=== PATIENT | male | born 1975 | race Caucasian/White ===

== ENCOUNTER 2023-07-27 08:24 | Inpatient (IN) | payer OTHER, SELFPAY ==
[2023-07-27 09:45] LABS: Absolute Eosinophils 0.3 K/uL (0-0.5); Absolute Lymphocytes (CBC) 2.7 K/uL (0.7-4.9); Absolute Monocytes 1.1 K/uL (0.1-1.3); Absolute Neutrophil 8.7 K/uL (1.8-8.0); Basophils % 0.2 % (0-1.3); Eosinophils % 2.2 % (0-4.4); Hemoglobin 12.1 g/dL (13.6-17.9); Lymphocytes % 21.1 % (15.3-44.8); MCH 28.6 pg (27.0-35.0); MCHC 32.7 g/dL (32.0-36.0); MCV 87.6 fL (80-100); MPV 7.2 fL (7.6-11.3); Monocytes % 8.6 % (3.3-12.3); Neutrophils % 67.9 % (41.7-73.7); Platelets 637 thou/uL (152-406); RBC Red Blood Cell Count 4.22 M/uL (4.33-5.43); Red Cell Distribution Width 15.5 % (12.1-15.2)
[2023-07-27 09:49] LABS: PT Prothrombin Time 15.6 SECONDS (9.5-12.5); Protime INR 1.43
[2023-07-27] MEDS ORDERED: NA CHLORIDE 0.9% 100 ML ONE (10:01)
[2023-07-27] MEDS ORDERED: HYDROCODONE/APAP 10/325 TAB ONE (10:01)
[2023-07-27] MEDS ORDERED: PIPERACIL/TAZO 3.375 GM VIAL IV ONE (10:02)
[2023-07-27] MEDS ORDERED: NA CHLORIDE 0.9% 1,000 ML ONE (10:02)
[2023-07-27 10:05] LABS: Albumin 2.5 g/dL (3.4-5.0); Albumin/Globulin Ratio 0.4 (1.1-1.8); Bilirubin Direct 0.1 mg/dL (0-0.2); Bilirubin Indirect, Calculated 0.3 mg/dL (0.2-0.8); Bilirubin Total 0.4 mg/dL (0.2-1.0); C-Reactive Protein 72.9 mg/L (<3.00); Globulin 6.1 g/dL (2.3-3.5); Magnesium 2.1 mg/dL (1.6-2.4); Protein, Total 8.6 g/dL (6.4-8.2)
--- NOTE | 2023-07-27 10:51 | ER ---
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 cotto. Coronavirus screen: At this time, the client does not indicate any symptoms associated with coronavirus-19. Ebola Screen: Patient negative for fever greater than or equal to 101.5 degrees Fahrenheit, and additional compatible Ebola Virus Disease symptoms Patient denies exposure to infectious person. Patient denies travel to an Ebola-affected area in the 21 days before illness onset. No symptoms or risks identified at this time. 08:52 Method Of Arrival: Wheelchair iw 08:52 Acuity: RENUKA 3 iw 08:54 Initial Sepsis Screen: Does the patient meet any 2 criteria? No. Patient's initial iw sepsis screen is negative. Does the patient have a suspected source of infection?. Risk Assessment: Do you want to hurt yourself or someone else? Patient reports no desire to harm self or others. Onset of symptoms was July 24, 2023. Historical: - Allergies: 08:55 No Known Allergies; iw - Home Meds: 08:57 amiodarone 200 mg Oral tablet every 12 hours [Active]; aspirin 81 mg Oral capsule daily iw [Active]; diltiazem HCl 180 mg Oral Capsule, ER 24 hr daily [Active]; hydrocodone-acetaminophen 10-325 mg Oral tablet every 8 hours [Active]; alprazolam 1 mg Oral tablet 2 times per day [Active]; Eliquis 5 mg oral tablet every 12 hours [Active]; baclofen 20 mg Oral tablet every 8 hours [Active]; insulin glargine 100 unit/mL Sub-Q solution 45 units 2 times per day [Active]; losartan 100 mg oral tablet daily [Active]; metformin 850 mg Oral tablet 2 times per day [Active]; simvastatin 20 mg Oral tablet daily [Active]; - PMHx: 08:57 Atrial fibrillation; COPD; Diabetes mellitus; Hypertensive disorder; iw - Immunization history:: Adult Immunizations not up to date. - Social history:: Smoking status: Patient reports the use of cigarette tobacco products, 1 pack per 2-3 days. Screenin:36 [facility] ED Fall Risk Assessment (Adult) History of falling in the last 3 months, iw including since admission No falls in past 3 months (0 pts) Confusion or Disorientation No (0 pts) Intoxicated or Sedated No (0 pts) Impaired Gait Yes (1 pt) Mobility Assist Device Used Yes (1 pt) Altered Elimination No (0 pt) Score/Fall Risk Level 0 - 2 = Low Risk Oriented to surroundings. Abuse screen: Denies threats or abuse. Denies injuries from another. Nutritional screening: No deficits noted. Tuberculosis screening: No symptoms or risk factors identified. Assessment: 10:33 Reassessment: xray at bedside. iw Vital Signs: 08:56 BP 145 / 103; Pulse 90; Resp 19; Temp 98.5; Pulse Ox 98% on R/A; Weight 208.65 kg; iw Height 6 ft. 0 in. ; Pain 10/10; 12:39 BP 144 / 78; Pulse 84; Resp 18; Temp 98.5(O); Pulse Ox 98% on R/A; iw 08:56 Body Mass Index 62.39 (208.65 kg, 182.88 cm) iw 08:56 Pain Scale: Adult iw ED Course: 08:30 Patient arrived in ED. ra3 08:30 Boris Newman MD is Attending Physician. carin 08:41 Charline Waters, RN is Primary Nurse. iw 08:54 Triage completed. iw 08:55 Arm band placed on. iw 09:37 Accessed PICC line. using per hospital protocol. Clean \T\ dry. Dressing intact. Good iw blood return. Flushes easily. 09:37 Initial lab(s) drawn, by me, sent to lab. First set of blood cultures drawn by me. iw 10:31 Second set of blood cultures drawn by me. iw 10:37 Patient has correct armband on for positive identification. iw 10:41 Addison Stanley MD is Hospitalizing Provider. carin 10:48 XRAY Chest (1 view) In Process Unspecified. EDMS 10:48 Foot Left 3 View XRAY In Process Unspecified. EDMS 10:55 US Extremity Venous Unilateral Ltd In Process Unspecified. EDMS Administered Medications: 10:23 Drug: Buford PO 10 mg-325 mg 1 tabs PO once Route: PO; iw 11:30 Follow up: Response: No adverse reaction; Pain is decreased iw 11:28 Drug: Piperacillin-Tazobactam IVPB 3.375 grams IVPB once over 60 mins; (mix in NS 100 aa5 mL) Route: IVPB; Infused Over: 60 mins; Site: PICC; 12:30 Follow up: IV Status: Completed infusion iw 12:02 Drug: vancoMYCIN IVPB 1.5 grams IVPB at calculated rate once Route: IVPB; Rate: iw calculated rate; Site: PICC; 13:10 Follow up: IV Status: Infusion continued upon admission iw 12:03 Not Given (Patient Refused): morphineor iv 4 mg IVP once over 4 mins iw 12:03 Not Given (Patient Refused): ondansetron 4 mg IVP once; over 2 minutes iw 07/27 07:47 Not Given (Patient Refused): ns 0.9% 1000 ml IV at 1 bolus Per protocol; 1000 mL bolus iw Outcome: 07/26 10:50 Decision to Hospitalize by Provider. carin 13:16 Patient left the ED. 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 cotto iw
--- NOTE | 2023-07-27 10:51 | EDPHYS ---
Physician Documentation [facility] Name: Genaro Mccabe III Age: 47 yrs Sex: Male : 1975 Arrival Date: 07/27/2023 Time: 08:24 Bed Ultrasound Private MD: Boris Wiseman HPI: 07/26 10:34 This 47 yrs old Male presents to ER via Wheelchair with complaints of Leg carin Swelling - foot swelling. 10:34 The patient presents with decreased range of motion, pain, swelling, tenderness. The carin complaints affect the lateral aspect of left calf, left lateral ankle, lateral aspect of left foot, left calf, left Achilles, left heel, medial aspect of left calf, left medial ankle, medial aspect of left foot, left mancera, anterior aspect of left ankle and dorsum of left foot. Context: The problem was sustained at an unknown site, resulted from a chronic condition, after an old injury, the patient can partially bear weight, must have assistance, from a acid adjuster, from the patient's parent(s), Problem is a result from a previous injury: No. Onset: The symptoms/episode began/occurred 3 month(s) ago. Modifying factors: The symptoms are alleviated by nothing. elevating leg, the symptoms are aggravated by movement, weight bearing. Associated signs and symptoms: The patient has no apparent associated signs or symptoms. The patient presents with decreased range of motion, pain, that is acute. The complaints affect the left foot, lateral aspect of left calf, left lateral ankle, lateral aspect of left foot, left calf, left Achilles, left heel, medial aspect of left calf, left medial ankle, medial aspect of left foot, left mancera, anterior aspect of left ankle and dorsum of left foot. Modifying factors: The symptoms are alleviated by elevation of extremity, the symptoms are aggravated by weight bearing, movement. Treatment prior to arrival includes: elevation of the extremity, picc daptomycin 1600 mg daily now 4 weeks. Associated signs and symptoms: Pertinent positives: calf tenderness, fever, warmth. Severity of symptoms: At their worst the symptoms were moderate, in the emergency department the symptoms are unchanged. Historical: - Allergies: 08:55 No Known Allergies; iw - Home Meds: 08:57 amiodarone 200 mg Oral tablet every 12 hours [Active]; aspirin 81 mg Oral capsule daily iw [Active]; diltiazem HCl 180 mg Oral Capsule, ER 24 hr daily [Active]; hydrocodone-acetaminophen 10-325 mg Oral tablet every 8 hours [Active]; alprazolam 1 mg Oral tablet 2 times per day [Active]; Eliquis 5 mg oral tablet every 12 hours [Active]; baclofen 20 mg Oral tablet every 8 hours [Active]; insulin glargine 100 unit/mL Sub-Q solution 45 units 2 times per day [Active]; losartan 100 mg oral tablet daily [Active]; metformin 850 mg Oral tablet 2 times per day [Active]; simvastatin 20 mg Oral tablet daily [Active]; - PMHx: 08:57 Atrial fibrillation; COPD; Diabetes mellitus; Hypertensive disorder; iw - Immunization history:: Adult Immunizations not up to date. - Social history:: Smoking status: Patient reports the use of cigarette tobacco products, 1 pack per 2-3 days. ROS: 10:37 Constitutional: Negative for fever, chills, and weight loss, Eyes: Negative for injury, carin pain, redness, and discharge, ENT: Negative for injury, pain, and discharge, Neck: Negative for injury, pain, and swelling, Cardiovascular: Negative for chest pain, palpitations, and edema, Respiratory: Negative for shortness of breath, cough, wheezing, and pleuritic chest pain, Abdomen/GI: Negative for abdominal pain, nausea, vomiting, diarrhea, and constipation, Back: Negative for injury and pain, : Negative for injury, bleeding, discharge, and swelling, Neuro: Negative for headache, weakness, numbness, tingling, and seizure, Psych: Negative for depression, anxiety, suicide ideation, homicidal ideation, and hallucinations, Allergy/Immunology: Negative for hives, rash, and allergies, Endocrine: Negative for neck swelling, polydipsia, polyuria, polyphagia, and marked weight changes, Hematologic/Lymphatic: Negative for swollen nodes, abnormal bleeding, and unusual bruising, 10:37 MS/extremity: Positive for injury or acute deformity, decreased range of motion, erythema, pain, swelling, tenderness, of the left leg, Exam: 10:37 Constitutional: This is a well developed, well nourished patient who is awake, alert, carin and in no acute distress. Head/Face: Normocephalic, atraumatic. Eyes: Pupils equal round and reactive to light, extra-ocular motions intact. Lids and lashes normal. Conjunctiva and sclera are non-icteric and not injected. Cornea within normal limits. Periorbital areas with no swelling, redness, or edema. ENT: Nares patent. No nasal discharge, no septal abnormalities noted. Tympanic membranes are normal and external auditory canals are clear. Oropharynx with no redness, swelling, or masses, exudates, or evidence of obstruction, uvula midline. Mucous membranes moist. Neck: Trachea midline, no thyromegaly or masses palpated, and no cervical lymphadenopathy. Supple, full range of motion without nuchal rigidity, or vertebral point tenderness. No Meningismus. Chest/axilla: Normal chest wall appearance and motion. Nontender with no deformity. No lesions are appreciated. Cardiovascular: Regular rate and rhythm with a normal S1 and S2. No gallops, murmurs, or rubs. Normal PMI, no JVD. No pulse deficits. Respiratory: Lungs have equal breath sounds bilaterally, clear to auscultation and percussion. No rales, rhonchi or wheezes noted. No increased work of breathing, no retractions or nasal flaring. Abdomen/GI: Soft, non-tender, with normal bowel sounds. No distension or tympany. No guarding or rebound. No evidence of tenderness throughout. Back: No spinal tenderness. No costovertebral tenderness. Full range of motion. Male : Normal genitalia with no discharge or lesions. Skin: Warm, dry with normal turgor. Normal color with no rashes, no lesions, and no evidence of cellulitis. Neuro: Awake and alert, GCS 15, oriented to person, place, time, and situation. Cranial nerves II-XII grossly intact. Motor strength 5/5 in all extremities. Sensory grossly intact. Cerebellar exam normal. Normal gait. Psych: Awake, alert, with orientation to person, place and time. Behavior, mood, and affect are within normal limits. 10:37 Musculoskeletal/extremity: Extremities: grossly normal except: decreased ROM, erythema, pain, swelling, tenderness, Circulation is intact in all extremities. numbness, Compartment Syndrome exam of affected extremity: is normal. Weight bearing: can bear weight with assistance only, uses walker, DVT Exam: negative Homans' sign noted on exam, no appreciated bluish discoloration, pain, swelling, tenderness, erythema, increased warmth, Calves: are tender, on left, 13:02 ECG was reviewed by the Attending Physician. [facility] Vital Signs: 08:56 BP 145 / 103; Pulse 90; Resp 19; Temp 98.5; Pulse Ox 98% on R/A; Weight 208.65 kg; iw Height 6 ft. 0 in. ; Pain 10/10; 12:39 BP 144 / 78; Pulse 84; Resp 18; Temp 98.5(O); Pulse Ox 98% on R/A; iw 08:56 Body Mass Index 62.39 (208.65 kg, 182.88 cm) iw 08:56 Pain Scale: Adult iw MDM: 08:31 Patient medically screened. carin 10:39 Differential diagnosis: closed fracture, contusion, tendonitis, fracture, sprain, gout, carin cellulitis. Differential Diagnosis sepsis. Data reviewed: vital signs, nurses notes, lab test result(s), EKG, radiologic studies, doppler, plain films. Consideration of Admission/Observation Patient was admitted/placed on observation. Escalation of care including admission/observation considered. I considered the following discharge prescriptions or medication management in the emergency department Medications were administered in the Emergency Department. See MAR. Test considered but Not performed: MRI: no mri left foot. Care significantly affected by the following chronic conditions: Diabetes, Hypertension, Congestive Heart Failure, Chronic Obstructive Pulmonary Disease, Obesity, a fib, amiodarone, eliquis. 04 09:14 Order name: Basic Metabolic Panel; Complete Time: 10:29 [facility] 07/26 09:14 Order name: CBC with Diff; Complete Time: 10:29 [facility] 07/26 09:14 Order name: LFT's; Complete Time: 10:29 [facility] 07/26 09:14 Order name: Magnesium; Complete Time: 10:29 [facility] 07/26 09:14 Order name: NT PRO-BNP; Complete Time: 10:29 [facility] 07/26 09:14 Order name: PT-INR; Complete Time: 10:29 [facility] 07/26 09:14 Order name: Troponin HS; Complete Time: 10:29 [facility] 07/26 09:14 Order name: CRP; Complete Time: 10:29 [facility] 07/26 09:14 Order name: Blood Culture Adult (2) [facility] 07/26 09:14 Order name: Lactate w/ 2H reflex if indic.; Complete Time: 10:29 [facility] 07/26 09:14 Order name: XRAY Chest (1 view) [facility] 07/26 09:14 Order name: Foot Left 3 View XRAY [facility] 07/26 09:14 Order name: US Extremity Venous Unilateral Ltd [facility] 07/26 09:14 Order name: EKG; Complete Time: 09:15 [facility] 07/26 09:14 Order name: Cardiac monitoring; Complete Time: 13:07 [facility] 07/26 09:14 Order name: EKG - Nurse/Tech; Complete Time: 13:07 [facility] 07/26 09:14 Order name: IV Saline Lock; Complete Time: 09:54 [facility] 07/26 09:14 Order name: Labs collected and sent; Complete Time: 09:54 [facility] 07/26 09:14 Order name: O2 Per Protocol; Complete Time: :54 [facility] 07/26 09:14 Order name: O2 Sat Monitoring; Complete Time: :54 [facility] EC:02 Rate is 84 beats/min. Rhythm is regular. QRS [place] is Normal. WI interval is normal. QRS carin interval is normal. QT interval is normal. T waves are Normal. No ST changes noted. Clinical impression: NSR w/ Non-specific ST/T Changes and No evidence of ischemia. Interpreted by me. Reviewed by me. Administered Medications: 10:23 Drug: Gulliver PO 10 mg-325 mg 1 tabs PO once Route: PO; iw 11:30 Follow up: Response: No adverse reaction; Pain is decreased iw 11:28 Drug: Piperacillin-Tazobactam IVPB 3.375 grams IVPB once over 60 mins; (mix in NS 100 aa5 mL) Route: IVPB; Infused Over: 60 mins; Site: PICC; 12:30 Follow up: IV Status: Completed infusion iw 12:02 Drug: vancoMYCIN IVPB 1.5 grams IVPB at calculated rate once Route: IVPB; Rate: iw calculated rate; Site: PICC; 13:10 Follow up: IV Status: Infusion continued upon admission iw 12:03 Not Given (Patient Refused): morphineor iv 4 mg IVP once over 4 mins iw 12:03 Not Given (Patient Refused): ondansetron 4 mg IVP once; over 2 minutes iw 07/27 07:47 Not Given (Patient Refused): ns 0.9% 1000 ml IV at 1 bolus Per protocol; 1000 mL bolus iw Disposition Summary: 07/27/23 10:50 Hospitalization Ordered Notes: Hospitalization Status: Inpatient Admission carin Provider: Addison Stanley cha Location: Telemetry/MedSurg (Inpatient) carin Condition: Fair carin Problem: new carin Symptoms: have improved carin Bed/Room Type: Standard [facility] Room Assignment: 412(07/27/23 11:59) 5 Diagnosis - Cellulitis and acute lymphangitis of other parts of limb carin - Obesity, unspecified carin - long term care phlebotomist (current) use of anticoagulants carin - Type 2 diabetes mellitus with hyperglycemia carin - Edema, unspecified carin Forms: - Medication Reconciliation Form carin - SBAR form carin - Leadership Thank You Letter carin Signatures: Dispatcher [employer] EDBoris Welch MD MD cha Williams, Irene RN Shagufta Garrison RN RN aa5 Adilia Muro 5 Corrections: (The following items were deleted from the chart) 07/26 09:15 09:15 BASIC METABOLIC PANEL+C.LAB.BRZ ordered. EDMS EDMS 09:15 09:15 CBC+H.LAB.BRZ ordered. EDMS EDMS 09:15 09:15 HEPATIC FUNCTION+C.LAB.BRZ ordered. EDMS EDMS 09:15 09:15 MAGNESIUM+C.LAB.BRZ ordered. EDMS EDMS 09:15 09:15 PROBNP+C.LAB.BRZ ordered. EDMS EDMS 09:15 09:15 PROTIME (+INR)+COAG.LAB.BRZ ordered. EDMS EDMS 09:15 09:15 Troponin High Sensitivity+C.LAB.BRZ ordered. EDMS EDMS 09:15 09:15 C-REACTIVE PROTEIN+C.LAB.BRZ ordered. EDMS EDMS 09:15 09:15 BLOOD CULTURE*+BA.LAB.BRZ ordered. EDMS EDMS 09:15 09:15 LACTATE+C.LAB.BRZ ordered. EDMS EDMS 11:59 10:50 carin 5
--- NOTE | 2023-07-27 11:07 | RAD REPORT ---
EXAM DESCRIPTION: RAD - Chest Single View - 07/27/2023 10:46 am CLINICAL HISTORY: COUGH COMPARISON: No comparisons FINDINGS: Lines: Right subclavian approach PICC with tip overlying the SVC . Lungs: No evidence of edema or pneumonia. Pleural: No significant pleural effusions or pneumothorax. Cardiac: Cardiomegaly. Mediastinum: Within normal limits. Bones: No acute fractures. Other: None IMPRESSION: No acute cardiopulmonary disease.
--- NOTE | 2023-07-27 11:10 | RAD REPORT ---
EXAM DESCRIPTION: RAD - Foot Left 3 View - 07/27/2023 10:46 am CLINICAL HISTORY: PAIN COMPARISON: No comparisons FINDINGS/IMPRESSION: Comminuted fracture at the base of the third proximal phalanx is age indetermin ate. Partial amputation of the first and second toes. Nondisplaced fracture and cortical loss at the second metatarsal. This may reflect osteomyelitis. Remote second metatarsal fracture. Severe midfoot degenerative changes with collapse. Probable Lisfranc fracture-dislocation, likely chronic. Plantar a nd dorsal aspect calcaneal spurring.
--- NOTE | 2023-07-27 11:11 | RAD REPORT ---
EXAM DESCRIPTION: US - Extremity Venous Uni Ltd - 07/27/2023 10:53 am CLINICAL HISTORY: Pain, swelling COMPARISON: None. TECHNIQUE: Real-time sonographic evaluation of the left lower extremity deep venous system was perfo rmed. FINDINGS: Normal compressibility, flow augmentation, phasic flow and spontaneous flow is identified in the left lower extremity deep venous system. No intraluminal filling defects seen. Enlarged left inguinal lymph nodes likely reactive to the process at the left foot. IMPRESSION: No DVT in the left lower extremity.
--- NOTE | 2023-07-27 11:47 | P.HP ---
Certification for Inpatient Patient admitted to: Inpatient With expected LOS: <2 Midnights Practitioner: I am a practitioner with admitting privileges, knowledge of patient current condition, hospital course, and medical plan of care. Services: Services provided to patient in accordance with Admission requirements found in Title 42 Section 412.3 of the Code of Federal Regulations Patient History Date of Service: 07/28/23 Reason for admission: Left foot ulcer, cellulitis of the left lower EXTR History of Present Illness: 47-year-old male with a past medical history of morbid obesity, A-fib,COPD; Diabetes mellitus; Hypertensive disorder; chronic diabetic Left foot ulcer presents to emergency room of [facility] pain swelling. He reports symptoms worse over the last week, started 2 weeks ago. LLE doppler negative for DVT, LLL foot swelling wth with cellultiis. LLE Xray FINDINGS/IMPRESSION: Comminuted fracture at the base of the third proximal phalanx is age indeterminate. Partial amputation of the first and second toes. Nondisplaced fracture and cortical loss at the second metatarsal. This may reflect osteomyelitis. Remote second metatarsal fracture. Severe midfoot degenerative changes with collapse. Probable Lisfranc fracture-dislocation, likely chronic. Plantar and dorsal aspect calcaneal spurring He sees Dr Mendez, needs cardiac clearance prior to surgical evaluation. Patient reports he has not followed with surgery after seeing cardiology. No reported fever, chest pain, or shortness of breath, plan to admit for left lower extremity lymphangitis, left lower extremity cellulitis, left lower extremity diabetic foot ulcer, morbid obesity, A-fib RVR, with surgery to consult, and cardiology consult for cardiac clearance. Allergies No Known Allergies Allergy (Unverified 07/27/23 11:21) - Past Medical/Surgical History Diabetic: Yes -: A-fib -: Chronic anticoagulation -: Atrial flutter status post cardioversion -: Essential hypertension -: Hyperlipidemia -: Diabetes type 2 insulin-dependent -: Peripheral neuropathy -: Chronic left foot diabetic foot ulcer -: Tobacco use -: Obstructive sleep apnea -: Morbid obesity -: Left partial forefoot amputation - Social History Smoking Status: Current every day smoker Smoking therapy provided: Yes Alcohol use: No CD- Drugs: No Caffeine use: Yes Place of Residence: Home Review of Systems PER HPI Physical Examination - Physical Exam General: Alert, In no apparent distress, Oriented x3, Obese, Other (morbid obesity) HEENT: Atraumatic, Normocephalic Neck: 2+ carotid pulse no bruit, JVD not distended Respiratory: Clear to auscultation bilaterally, Normal air movement Cardiovascular: Other (LLE edema), Irregular heart rate/rhythm Gastrointestinal: Other (Obese, ) Musculoskeletal: No tenderness Integumentary: Other (Left Lower leg edema, Left partial foot ampuation) Neurological: Normal speech, Abnormal speech Lymphatics: Other (LL lymphangitis) - Studies Laboratory Data (last 24 hrs) 07/27/23 07/27/23 07/27/23 09:31 09:31 09:31 WBC 12.90 H Hgb 12.1 L Hct 37.0 L Plt Count 637 H PT 15.6 H INR 1.43 Sodium 132 L Potassium 4.0 BUN 11 Creatinine 0.82 Glucose 72 L Magnesium 2.1 Total Bilirubin 0.4 AST 21 ALT 23 Alkaline Phosphatase 121 H Assessment and Plan - Plan Assessment plan Left lower extremity lymphangitis left lower extremity osteomyelitis left lower extremity diabetic foot ulcer with surgery to consult, IV antibiotics, daptomycin Infectious disease consult Left foot ulcer presents to emergency room of [facility] pain swelling. He reports symptoms worse over the last week, started 2 weeks ago. LLE doppler negative for DVT, LLL foot swelling wth with cellultiis. LLE Xray FINDINGS/IMPRESSION: Comminuted fracture at the base of the third proximal phalanx is age indeterminate. Partial amputation of the first and second toes. Nondisplaced fracture and cortical loss at the second metatarsal. This may reflect osteomyelitis. Remote second metatarsal fracture. Severe midfoot degenerative changes with collapse. Probable Lisfranc fracture-dislocation, likely chronic. Plantar and dorsal aspect calcaneal spurring He sees Dr Mendez, needs cardiac clearance prior to surgical evaluation. Patient reports he has not followed with surgery after seeing cardiology. No reported fever, chest pain, or shortness of breath, plan to admit for left lower extremity lymphangitis, left lower extremity cellulitis, left lower extremity diabetic foot ulcer, morbid obesity, A-fib RVR, with surgery to consult, and cardiology consult for cardiac clearance. morbid obesity A-fib RVR, hypertensive disorder and cardiology consult for cardiac clearance. resume appropriate home meds COPD O2 2 L keep sats greater than 92%, As needed nebs Diabetes mellitus with peripheral Insulin-dependent Accu-Cheks, resume home insulin A1c, resume home meds Full code DVT Lovenox Diet diabetic Disposition Home with IV antibiotic Discharge Plan: Home - Advance Directives Does patient have a Living Will: No Does patient have a Durable POA for Healthcare: No - Code Status/Comfort Care Code Status: Full Code Critical Care: No Time Spent Managing Pts Care (In Minutes): 55
--- NOTE | 2023-07-27 12:26 | P.HP ---
Patient History Reason for admission: Left foot ulcer, cellulitis of the left lower EXTR Allergies No Known Allergies Allergy (Unverified 07/27/23 11:21) - Past Medical/Surgical History Diabetic: Yes -: A-fib -: Chronic anticoagulation -: Atrial flutter status post cardioversion -: Essential hypertension -: Hyperlipidemia -: Diabetes type 2 insulin-dependent -: Peripheral neuropathy -: Chronic left foot diabetic foot ulcer -: Tobacco use -: Obstructive sleep apnea -: Morbid obesity -: Left partial forefoot amputation - Social History Smoking Status: Current every day smoker Alcohol use: No CD- Drugs: No Caffeine use: Yes Place of Residence: Home Physical Examination - Studies Laboratory Data (last 24 hrs) 07/27/23 07/27/23 07/27/23 09:31 09:31 09:31 WBC 12.90 H Hgb 12.1 L Hct 37.0 L Plt Count 637 H PT 15.6 H INR 1.43 Sodium 132 L Potassium 4.0 BUN 11 Creatinine 0.82 Glucose 72 L Magnesium 2.1 Total Bilirubin 0.4 AST 21 ALT 23 Alkaline Phosphatase 121 H Assessment & Plan - Advance Directives Does patient have a Living Will: No Does patient have a Durable POA for Healthcare: No - Code Status/Comfort Care Code Status: Full Code Date of Service: 07/27/23 Patient chart was reviewed and patient was seen and examined. PEACE history and physical reviewed as well. Patient presented with pain in the left foot. Kaia teran was diagnosed with osteomyelitis about 3 weeks ago. He has been on IV daptomycin since that time. Patient's noticed over the last couple of weeks since has been home from [facility] that is left leg has been swollen. He was diagnosed with atrial fibrillation with rapid ventricular response and treated at [facility]. He does not remember if he had congestive heart failure. His left lower extremity is more swollen from the knee down to the foot. The increased swelling is causing his pain. There is no worsening of the infection necessarily. Patient still has 3 weeks of IV daptomycin remaining. Increased swelling is causing most of patient's pain. Patient appears to have venous insufficiency because of his morbid obesity. Patient does not warrant inpatient hospitalization at this time. Will get general surgery evaluation. Patient will be admitted for observation. Will get patient's swelling down from his knee downward. We get the swelling down then his pain should be mostly controlled. He will need to work with his surgeon and cardiology as an outpatient for further intervention and better control of his lower extremity edema. If patient's antibiotics do not improve his infections he will need to get transmet amputation in the near future.
[2023-07-27] MEDS: VANCOMYCIN 1.5 GM in NA CHLORIDE 0.9% 500 ML IVPB ONE (13:20)
[2023-07-27] MEDS ORDERED: ALPRAZOLAM 0.25 MG TABLET PO PRN (13:40)
[2023-07-27] MEDS ORDERED: ONDANSETRON 4 MG/2 ML VIAL IV PRN (13:40)
[2023-07-27] MEDS: NA CHLORIDE 0.9% 1,000 ML IV SCH (13:59)
[2023-07-27] MEDS: ALBUMIN HUMAN 25% 12.5 GM, FUROSEMIDE 100 MG in NA CHLORIDE 0.9% 40 ML IV SCH (14:00)
--- NOTE | 2023-07-27 14:51 | CON ---
Date of Consultation: 07/27/2023 Reason For Consultation: Preop assessment for possible surgical debridement of cellulitis and amputa tion. History Of Present Illness: A 47-year-old male, history of morbid obesity, diabetes, atrial fibrilla tion, COPD, hypertension, presented with left lower extremity pain, foot ulcer with surrounding eryth dulce maria and drainage, and I was consulted to evaluate his cardiac risk preoperatively. He denies having any history of cardiac disease other than atrial fibrillation, status post cardioversion in the past, but no coronary artery disease, no stents and he is active, does not have chest pain, can do more th an 4 METS without any chest pain. Past Medical History: As outlined above in the HPI. Medications: Refer reconciliation sheet for detailed list. Allergies: NO KNOWN DRUG ALLERGIES. Family History: No premature coronary artery disease or cancer. Social History: He does not smoke or drink. Does not use any drugs. Review of Systems: All systems reviewed are negative except mentioned in HPI. Physical Examination: Vital Signs: Reviewed. Head and Neck: Pupils are equal, reactive to light. Intact eye movements. No JVD. No cervical lym phadenopathy. Neck is supple. Thyroid is not enlarged. Lungs: Clear to auscultation bilaterally. No rhonchi, wheezing, or crackles. No accessory muscle u se. Heart: Regular rate and rhythm. No extra sounds. Abdomen: Soft, nontender. Bowel sounds positive. No organomegaly. No masses or hernia. No rigidi ty or rebound. Extremities: No edema, clubbing, cyanosis. Intact pulses. Skin: No rash or nodules. Neurologic: Alert, awake, oriented x3. No acute focal deficits appreciated. Lymph Nodes: No cervical, axillary lymphadenopathy. Investigations: BUN is 11, creatinine 0.82. Hemoglobin is 12.1. Troponin is 10. Assessment/recommendation: 1.Cardiac preoperative risk assessment. This patient does not have any cardiac symptoms. He defini tely has cardiac risk factors. So he is at moderate cardiac risk for noncardiac surgery. However, t here are no active symptoms. I recommend no further cardiac workup at this point, to proceed as he c an do more than 4 METS without symptoms. Proceed with surgical debridement if needed and continue IV antibiotics. Definitely will need an evaluation for peripheral vascular disease with arterial Doppl er of lower extremities if it has not been done yet. 2.Cellulitis and osteomyelitis of left foot, needs debridement, wide-spectrum antibiotics. 3.Hypertension, is on home medications. SR/ROSA ISELAL Voice ID: [id number] Report ID: [id number]
[2023-07-27 15:01] VITALS: BMI 62.4
[2023-07-27] MEDS: DAPTOMYCIN IVPB SCH (16:23)
[2023-07-27] MEDS: NA CHLORIDE 0.9% IVPB SCH (16:23)
[2023-07-27] MEDS: INSULIN REGULAR (HUMAN) 100 UNIT/ML SQ SCH (16:30)
[2023-07-27 17:41] LABS: Specific Gravity 1.006 (1.005-1.030); Sqamous Epithelial <5 /HPF (None Seen); Urine Bacteria None Seen /HPF (<20); Urine Bilirubin NEGATIVE (Negative); Urine Blood Negative (Negative); Urine Clarity Clear (Clear); Urine Color Colorless (Yellow); Urine Culture Reflex Order NOT NEEDED; Urine Glucose NEGATIVE (Negative); Urine Ketones NEGATIVE (Negative); Urine Microscopic Reflex YN ORDER UMIC; Urine Mucus Slight /HPF (None Seen); Urine Nitrite NEGATIVE (Negative); Urine Protein NEGATIVE (Negative); Urine RBC None Seen /HPF (None Seen); Urine Urobilinogen Normal (Normal); Urine WBC None Seen /HPF (<5)
[2023-07-27] MEDS: HYDROCODONE/APAP 10/325 TAB PO PRN (23:02)
[2023-07-28 05:13] LABS: Anion Gap 8.8 mEq/L (5.0-15.0); Magnesium 2.2 mg/dL (1.6-2.4); Potassium 3.8 mEq/L (3.5-5.1)
[2023-07-28 05:15] LABS: Absolute Basophils 0.1 K/uL (0-0.5); Absolute Eosinophils 0.3 K/uL (0-0.5); Absolute Lymphocytes (CBC) 2.4 K/uL (0.7-4.9); Absolute Neutrophil 7.4 K/uL (1.8-8.0); Basophils % 0.6 % (0-1.3); Eosinophils % 2.9 % (0-4.4); Hematocrit 36.4 % (39.6-49.0); Hemoglobin 12.2 g/dL (13.6-17.9); Lymphocytes % 21.6 % (15.3-44.8); MCHC 33.4 g/dL (32.0-36.0); MCV 86.6 fL (80-100); MPV 7.2 fL (7.6-11.3); Monocytes % 8.8 % (3.3-12.3); Neutrophils % 66.1 % (41.7-73.7); Nucleated Red Blood Cells % 0.1 % (0-0); Platelets 595 thou/uL (152-406); Red Cell Distribution Width 15.4 % (12.1-15.2)
--- NOTE | 2023-07-28 07:33 | P.PN ---
Subjective Date of Service: 07/28/23 Chief Complaint: Left foot ulcer, cellulitis of the left lower EXTR Reports pain to the left lower extremity, posterior osteomyelitis left lower extremity, surgery following, Dr. Mendez history of A-fib, will need cardiac clearance prior to surgery Physical Exam General: Alert, In no apparent distress, Oriented x3, Cooperative HEENT: Atraumatic, Normocephalic Neck: Supple, 2+ carotid pulse no bruit, JVD not distended Respiratory: Clear to auscultation bilaterally, Normal air movement Cardiovascular: Normal pulses, Regular rate/rhythm, Normal S1 S2, No rubs Gastrointestinal: Hypoactive, Soft and benign, W/out hepatosplenomegaly, No tenderness Musculoskeletal: No clubbing, No swelling Integumentary: No rashes, No breakdown, cellulitis left lower extremity, partial amputated left lower extremity Neurological: Normal gait, Normal strength at 5/5 x4 extr, Normal tone, Normal affect Lymphatics: No axilla or inguinal lymphadenopathy <Veronique Pham - Last Filed: 07/28/23 09:19> Date of Service: 07/28/23 <Addison Stanley - Last Filed: 07/29/23 11:49> Review of Systems Per HPI <Veronique Pham - Last Filed: 07/28/23 09:19> Physical Examination - Vital Signs Temperature: 96.9 F Blood Pressure: 140/65 Pulse: 79 Respirations: 20 Pulse Ox (%): 91 - Studies Laboratory Data (last 24 hrs) 07/27/23 07/27/23 07/27/23 09:31 09:31 09:31 WBC 12.90 H Hgb 12.1 L Hct 37.0 L Plt Count 637 H PT 15.6 H INR 1.43 Sodium 132 L Potassium 4.0 BUN 11 Creatinine 0.82 Glucose 72 L Magnesium 2.1 Total Bilirubin 0.4 AST 21 ALT 23 Alkaline Phosphatase 121 H <Veronique Pham - Last Filed: 07/28/23 09:19> Assessment And Plan - Plan Assessment plan Left lower extremity lymphangitis left lower extremity osteomyelitis left lower extremity diabetic foot ulcer with surgery to consult, IV antibiotics, daptomycin, patient has a PICC line Infectious disease consulted Left foot ulcer presents to emergency room of [facility] pain swelling. He reports symptoms worse over the last week, started 2 weeks ago. LLE doppler negative for DVT, LLL foot swelling wth with cellultiis. LLE Xray FINDINGS/IMPRESSION: Comminuted fracture at the base of the third proximal phalanx is age indeterminate. Partial amputation of the first and second toes. Nondisplaced fracture and cortical loss at the second metatarsal. This may reflect osteomyelitis. Remote second metatarsal fracture. Severe midfoot degenerative changes with collapse. Probable Lisfranc fracture-dislocation, likely chronic. Plantar and dorsal aspect calcaneal spurring He sees Dr Mendez, needs cardiac clearance prior to surgical evaluation. Patient reports he has not followed with surgery after seeing cardiology. No reported fever, chest pain, or shortness of breath, plan to admit for left lower extremity lymphangitis, left lower extremity cellulitis, left lower extremity diabetic foot ulcer, morbid obesity, A-fib RVR, with surgery to consult, and cardiology consult for cardiac clearance. morbid obesity A-fib RVR, hypertensive disorder and cardiology consult for cardiac clearance. resume appropriate home meds COPD tobacco use O2 2 L keep sats greater than 92%, As needed nebs Diabetes mellitus with peripheral Insulin-dependent Accu-Cheks, resume home insulin A1c, resume home meds Full code DVT Lovenox Diet diabetic Disposition Home with IV antibiotic Discharge Plan: Home - Code Status/Comfort Care Code Status: Full Code Physician Review: Patient Assessed, Agree with Above Assessment and Plan Critical Care: No Time Spent Managing PTS Care (In Minutes): 35 <Veronique Pham - Last Filed: 07/28/23 09:19> Date of Service: 07/28/23 Patient was seen and examined. Events of the last 24 hours have been noted. Spoke with with PEACE regarding patient's clinical picture after evaluating and examining the patient independently. I performed a substantial part of the MDM during this patient's care today. I personally made or approved the documented management plan and acknowledge its risk of complications. I agree with the findings and documentation provided in the PEACE's notes. Patient is doing well. No DVT in the left leg. Patient has since had a angle which he appears to occlude his venous circulation. His calf muscle is much larger than the rest of his leg. He does not have good venous flow from the knee down. He will need to wear stockings or wraps. I believe a lot of it has to do with the way he positions his body when he sitting. He also has a large amount of weight around the abdominal region. That could also be obstructing his venous flow. Plan for surgery per General surgery. Wound will be left open with a wound VAC in place. Patient will need IV antibiotics for the duration of his treatment as long as the wound is open we need to assume that he has osteomyelitis and treat accordingly. <Addison Stanley - Last Filed: 07/29/23 11:49>
[2023-07-28] MEDS: GABAPENTIN 300 MG CAP PO SCH (14:06)
[2023-07-28] MEDS: HYDROCODONE/APAP 10/325 TAB PO SCH (14:06)
[2023-07-28] MEDS: AMIODARONE HCL 200 MG TAB PO SCH (20:35)
[2023-07-28] MEDS: INSULIN GLARGINE 100 UNIT/ML SQ SCH (20:42)
[2023-07-29 04:13] LABS: Absolute Basophils 0.1 K/uL (0-0.5); Absolute Eosinophils 0.3 K/uL (0-0.5); Absolute Lymphocytes (CBC) 2.5 K/uL (0.7-4.9); Absolute Monocytes 0.9 K/uL (0.1-1.3); Absolute Neutrophil 6.2 K/uL (1.8-8.0); Basophils % 0.5 % (0-1.3); Eosinophils % 2.8 % (0-4.4); Hematocrit 36.3 % (39.6-49.0); Hemoglobin 12.1 g/dL (13.6-17.9); MCH 29.2 pg (27.0-35.0); MCHC 33.4 g/dL (32.0-36.0); MCV 87.4 fL (80-100); MPV 6.9 fL (7.6-11.3); Monocytes % 8.8 % (3.3-12.3); Neutrophils % 62.9 % (41.7-73.7); Nucleated Red Blood Cells % 0.1 % (0-0); Platelets 611 thou/uL (152-406); RBC Red Blood Cell Count 4.15 M/uL (4.33-5.43); Red Cell Distribution Width 15.4 % (12.1-15.2)
[2023-07-29 04:18] LABS: Anion Gap 7.3 mEq/L (5.0-15.0); Magnesium 2.2 mg/dL (1.6-2.4); Potassium 4.3 mEq/L (3.5-5.1)
[2023-07-29] MEDS: DILTIAZEM HCL 180 MG SR CAP PO SCH (07:20)
[2023-07-29] MEDS: ASPIRIN EC 81 MG TAB PO SCH (07:20)
[2023-07-29] MEDS: LOSARTAN POTASSIUM 50 MG TABLET PO SCH (07:20)
[2023-07-29] MEDS: ATORVASTATIN 10 MG TAB PO SCH (07:20)
[2023-07-29] MEDS: INSULIN GLARGINE 100 UNIT/ML SQ ONE (09:42)
--- NOTE | 2023-07-29 12:37 | P.PN ---
Subjective Date of Service: 07/29/23 Chief Complaint: Left foot ulcer, cellulitis of the left lower EXTR Pt is resting comfortably in bed. HE has cellulitis on left foot. Waiting for evaluation by Gen surgeon. HE is getting iv daptomycin. No other complaints. Review of Systems General: Unremarkable Eyes: Unremarkable ENT: Unremarkable Respiratory: Unremarkable Cardiovascular: Unremarkable Gastrointestinal: Unremarkable Genitourinary: Unremarkable Musculoskeletal: Unremarkable Integumentary: Other (left foot cellulitis) Neurological: Unremarkable Lymphatics: Unremarkable Physical Examination - Vital Signs Temperature: 97.1 F Blood Pressure: 140/84 Pulse: 93 Respirations: 22 Pulse Ox (%): 97 - Physical Exam General: Alert, In no apparent distress, Oriented x3, Obese HEENT: Atraumatic, Normocephalic, PERRLA Neck: Supple, 2+ carotid pulse no bruit Respiratory: Clear to auscultation bilaterally, Normal air movement Cardiovascular: No edema, Normal pulses, Regular rate/rhythm, Normal S1 S2 Capillary refill: <2 Seconds Gastrointestinal: Normal bowel sounds, Soft and benign, Non-distended Musculoskeletal: No clubbing, No swelling Integumentary: No rashes, No breakdown, Erythema Neurological: Normal gait, Normal speech, Normal strength at 5/5 x4 extr Lymphatics: No axilla or inguinal lymphadenopathy Assessment And Plan - Plan Left lower extremity lymphangitis / osteomyelitis / diabetic foot ulcer: Will continue iv daptomycin. Consulted Gen surgeon. ID is following. Doppler ultrasound is negative for DVT. Will f/u blood cx. Left leg Xray shows comminuted fracture at the base of the third proximal phalanx is age indeterminate. Partial amputation of the first and second toes. Nondisplaced fracture and cortical loss at the second metatarsal. This may reflect osteomyelitis. Remote second metatarsal fracture. Severe midfoot degenerative changes with collapse. Probable Lisfranc fracture-dislocation, likely chronic. Plantar and dorsal aspect calcaneal spurring Morbid obesity: Pt was advised to lose weight. Hx of A-fib RVR: Will continue telemetry, Eliquis and diltiazem. Consulted Cardiology. Hx of COPD: Stable. Not in exacerbation. Will continue prn duoneb and oxygen. Tobacco abuse: Will continue nicotine patch. Diabetes mellitus: Will continue accuchek, SSI and ADA diet Code: Full DVT ppx: Lovenox Dispo: Pending hospital course. Physician Review: Patient Assessed, Agree with Above Assessment and Plan
--- NOTE | 2023-07-29 12:47 | EKG ---
Test Date: 2023-07-27 Test Time: 12:51:34 User Interface Designer: YANELIS MEASUREMENT RESULTS: Intervals: Rate: 84 [place]: 208 QRSD: 126 QT: 408 QTc: 482 [place]: P: 24 [place]: 208 QRS: -11 T: 22 INTERPRETIVE STATEMENTS: Normal sinus rhythm Right bundle branch block Abnormal ECG No previous ECG available for comparison Electronically Signed On 07-29-23 12:41:48 CDT by Nahum Mantilla
[2023-07-29] MEDS: NA CHLORIDE 0.9% 1,000 ML ONE (12:49)
[2023-07-29] MEDS ORDERED: propofoL 200 MG/20 ML VIAL IV ONE ×2 (13:28→13:51)
[2023-07-29] MEDS ORDERED: LIDOCAINE 1% MPF 5 ML VIAL ONE (13:28)
[2023-07-29] MEDS ORDERED: MIDAZOLAM HCL 2 MG/2 ML INJ ONE (13:28)
[2023-07-29] MEDS: BUPIVACAINE 0.25% PF 30 ML VIAL ONE (14:11)
[2023-07-29] MEDS ORDERED: ONDANSETRON 4 MG/2 ML VIAL ONE (14:17)
--- NOTE | 2023-07-29 14:33 | P.OP ---
Preoperative diagnosis: LEFT Foot Osteomyelitis Postoperative diagnosis: LEFT Foot Osteomyelitis Primary procedure: Debridement of LEFT Foot Osteomyelitis Anesthesia: MAC + Local Estimated blood loss: <2cc Specimen: Debridement, Cultures Findings: Infected Tissue around 2nd / 3rd metarsal Complications: None Transferred to: Recovery Room Condition: Good
[2023-07-29] MEDS: NA CHLORIDE 0.9% IVPB SCH (15:35)
[2023-07-29] MEDS: DAPTOMYCIN IVPB SCH (15:35)
--- NOTE | 2023-07-29 17:54 | PN ---
Date of Progress Note: 07/29/2023 Subjective: Seen by bedside. Doing clinically well. No chest pain. Review of Systems: No chest pain, shortness of breath, orthopnea, or cough. No nausea, vomiting, or diarrhea. All othe r systems were reviewed, they were negative. Objective: Vital Signs: Reviewed. Head and Neck: Pupils are equal, reactive to light. Intact eye movements. No JVD. No cervical lym phadenopathy. Neck is supple. Thyroid is not enlarged. Lungs: Clear to auscultation bilaterally. No rhonchi, wheezing, or crackles. Heart: Regular rate and rhythm. No extra sounds. Abdomen: Soft, nontender. Bowel sounds positive. No organomegaly. No masses or hernia. No rigidi ty or rebound. Extremities: No edema, clubbing, or cyanosis. Intact pulses. Skin: No rash or nodule. Neurological: Alert, awake, and oriented x3. No acute focal deficits appreciated. Investigations: Labs were reviewed. Assessment And Recommendations: 1.Cellulitis of lower extremity, on antibiotics. Recommend arterial Doppler to look for peripheral vascular disease. 2.Cardiac preoperative risk assessment. Patient has no active chest pain. If he needs local debrid ement, we will proceed. If he needs an aggressive surgical intervention, then I would recommend a st ress test prior. 3.Hypertension. Blood pressure is controlled. Continue current management. /RIVER Voice ID: [id number] Report ID: [id number]
[2023-07-29] MEDS: APIXABAN 5 MG TABLET PO SCH (20:01)
--- NOTE | 2023-07-30 01:26 | OP ---
Date of Procedure: 07/29/2023 Surgeon: Bright Upton MD, Preoperative Diagnosis: Left foot osteomyelitis. Postoperative Diagnosis: Left foot osteomyelitis. Procedures Performed: 1.Debridement of left foot osteomyelitis. 2.Partial metatarsal ectomy of second metatarsal. Anesthesia: MAC plus local with 0.25% Marcaine. Estimated Blood Loss: 2 cc. Specimen: Debrided tissue, this was cultured, sent for both aerobic and anaerobic speciation. Findings: Infected tissue around the second and third metatarsal. Complications: None. Disposition: The patient was transferred to recovery room in good condition. Procedure In Detail: After informed consent was obtained, the patient was brought to the operating r oom, prepped and draped in the usual sterile fashion. After adequate anesthesia was achieved, a circ ular incision around an area of obvious drainage of the second metatarsal of the left foot down to guo bcutaneous tissues were then dissected down to find obviously infected epithelialized tissue near the second metatarsal head. This was debrided sharply at this point, and portions of the metatarsal wer e debrided using a bone cutter. At this point, the edges of the second metatarsal beveled and adjace nt tissue that was along the third metatarsal was also debrided at this point sharply and sent off fo r pathologic examination and cultured at this point for aerobic and anaerobic speciation. The area w as copiously irrigated and hemostasis was achieved with electrocautery. I then packed the wound with Vashe-soaked half-inch packing and sterile dressing placed over top. The patient tolerated the proc edure without incident or complication and transferred to PACU in good condition. All counts were co rrect at the end of the case. LAVERNE/MODL Voice ID: [id number] Report ID: [id number]
[2023-07-30 04:17] LABS: Absolute Basophils 0.1 K/uL (0-0.5); Absolute Eosinophils 0.2 K/uL (0-0.5); Absolute Lymphocytes (CBC) 2.3 K/uL (0.7-4.9); Absolute Monocytes 0.6 K/uL (0.1-1.3); Absolute Neutrophil 5.9 K/uL (1.8-8.0); Basophils % 1.1 % (0-1.3); Eosinophils % 1.9 % (0-4.4); Hematocrit 34.1 % (39.6-49.0); Hemoglobin 11.6 g/dL (13.6-17.9); Lymphocytes % 25.5 % (15.3-44.8); MCH 29.5 pg (27.0-35.0); MCHC 33.9 g/dL (32.0-36.0); MCV 86.9 fL (80-100); Monocytes % 6.9 % (3.3-12.3); Neutrophils % 64.6 % (41.7-73.7); Nucleated Red Blood Cells % 0.1 % (0-0); Platelets 566 thou/uL (152-406); RBC Red Blood Cell Count 3.93 M/uL (4.33-5.43); Red Cell Distribution Width 15.2 % (12.1-15.2)
[2023-07-30 04:25] LABS: Anion Gap 7.3 mEq/L (5.0-15.0); Magnesium 2.3 mg/dL (1.6-2.4); Potassium 4.3 mEq/L (3.5-5.1)
[2023-07-30 08:52] VITALS: O2SAT 93
--- NOTE | 2023-07-30 10:53 | P.PN ---
Subjective Date of Service: 07/30/23 Chief Complaint: Left foot ulcer, cellulitis of the left lower EXTR Pt is resting comfortably in bed. He has cellulitis on left foot. S/p I&D. POD #1. Will continue iv daptomycin. No other complaints. Review of Systems General: Unremarkable Eyes: Unremarkable ENT: Unremarkable Respiratory: Unremarkable Cardiovascular: Unremarkable Gastrointestinal: Unremarkable Genitourinary: Unremarkable Musculoskeletal: Unremarkable Integumentary: Other (left foot cellulitis) Neurological: Unremarkable Lymphatics: Unremarkable Physical Examination - Vital Signs Temperature: 97.0 F Blood Pressure: 154/84 Pulse: 80 Respirations: 20 Pulse Ox (%): 93 - Physical Exam General: Alert, In no apparent distress, Oriented x3, Obese HEENT: Atraumatic, Normocephalic, PERRLA Neck: Supple, 2+ carotid pulse no bruit Respiratory: Clear to auscultation bilaterally, Normal air movement Cardiovascular: No edema, Normal pulses, Regular rate/rhythm, Normal S1 S2 Capillary refill: <2 Seconds Gastrointestinal: Normal bowel sounds, Soft and benign, Non-distended Musculoskeletal: No clubbing, No swelling Integumentary: Skin lesion, Other (left foot cellulitis, s/p I&D. POD #1) Neurological: Normal gait, Normal speech, Normal strength at 5/5 x4 extr, Normal tone, Sensation intact, Cranial nerves 3-12 intact Lymphatics: No axilla or inguinal lymphadenopathy Assessment And Plan - Plan Left lower extremity lymphangitis / osteomyelitis / diabetic foot ulcer: S/p I&D. POD #1. Will continue iv daptomycin. Consulted Gen surgeon. ID is following. Doppler ultrasound is negative for DVT. Will f/u blood cx. Left leg Xray shows comminuted fracture at the base of the third proximal ph alanx is age indeterminate. Partial amputation of the first and second toes. Nondisplaced fracture and cortical loss at the second metatarsal. This may reflect osteomyelitis. Remote second metatarsal fracture. Severe midfoot degenerative changes with collapse. Probable Lisfranc fracture-dislocation, likely chronic. Plantar and dorsal aspect calcaneal spurring Morbid obesity: Pt was advised to lose weight. Hx of A-fib RVR: Will continue telemetry, Eliquis and diltiazem. Consulted Cardiology. Hx of COPD: Stable. Not in exacerbation. Will continue prn duoneb and oxygen. Tobacco abuse: Will continue nicotine patch. Diabetes mellitus: Will continue accuchek, SSI and ADA diet Code: Full DVT ppx: Lovenox Dispo: Pending hospital course. Physician Review: Patient Assessed, Agree with Above Assessment and Plan
[2023-07-30 12:40] VITALS: BP 145/85; TEMP 97.1
--- NOTE | 2023-07-30 13:03 | P.DS ---
Admission Date: 07/27/23 Discharge Date: 07/30/23 Disposition: ROUTINE DISCHARGE Discharge Condition: GOOD Reason for Admission: Left foot ulcer, cellulitis of the left lower EXTR Brief History of Present Illness: 47-year-old male with a past medical history of morbid obesity, A-fib,COPD; Diabetes mellitus; Hypertensive disorder; chronic diabetic Left foot ulcer presents to emergency room of [facility] pain swelling. He reports symptoms worse over the last week, started 2 weeks ago. LLE doppler negative for DVT, LLL foot swelling wth with cellultiis. LLE Xray FINDINGS/IMPRESSION: Comminuted fracture at the base of the third proximal phalanx is age indeterminate. Partial amputation of the first and second toes. Nondisplaced fracture and cortical loss at the second metatarsal. This may reflect osteomyelitis. Remote second metat arsal fracture. Severe midfoot degenerative changes with collapse. Probable Lisfranc fracture-dislocation, likely chronic. Plantar and dorsal aspect calcaneal spurring He sees Dr Mendez, needs cardiac clearance prior to surgical evaluation. Patient reports he has not followed with surgery after seeing cardiology. No reported fever, chest pain, or shortness of breath, plan to admit for left lower extremity lymphangitis, left lower extremity cellulitis, left lower extremity diabetic foot ulcer, morbid obesity, A-fib RVR, with surgery to consult, and cardiology consult for cardiac clearance. Hospital Course: Pt is a 47yo male with past medical history of morbid obesity, A-fib, COPD, Diabetes mellitus, Hypertensive disorder, and chronic diabetic Left foot ulcer who presented with left leg edema, pain, and swelling. The symptoms worsened over the past week. Doppler ultrasound was negative for DVT, X-ray of the left foot showed comminuted fracture at the base of the third proximal phalanx is age indeterminate. Partial amputation of the first and second toes. Nondisplaced fracture and cortical loss at the second metatarsal. It was concerning for osteomyelitis. Gen surgeon took pt to the OR for I&D. We continued iv daptomycin. GEn surgeon cleared pt for discharge. Pt was in NAD prior to discharge. Vital Signs/Physical Exam: Temp Pulse Resp BP Pulse Ox 97.1 F 91 H 20 145/85 H 95 07/30/23 12:00 07/30/23 12:00 07/30/23 12:00 07/30/23 12:00 07/30/23 12:00 Laboratory Data at Discharge: WBC 9.10 thou/uL (4.3-10.9) 07/30/23 03:41 Hgb 11.6 g/dL (13.6-17.9) L 07/30/23 03:41 Hct 34.1 % (39.6-49.0) L 07/30/23 03:41 Plt Count 566 thou/uL (152-406) H 07/30/23 03:41 PT 15.6 SECONDS (9.5-12.5) H 07/27/23 09:31 INR 1.43 07/27/23 09:31 Sodium 131 mEq/L (136-145) L 07/30/23 03:41 Potassium 4.3 mEq/L (3.5-5.1) 07/30/23 03:41 BUN 15 mg/dL (7-18) 07/30/23 03:41 Creatinine 0.81 mg/dL (0.70-1.30) 07/30/23 03:41 Glucose 166 mg/dL (74-106) H 07/30/23 03:41 Magnesium 2.3 mg/dL (1.6-2.4) 07/30/23 03:41 Total Bilirubin 0.4 mg/dL (0.2-1.0) 07/27/23 09:31 AST 21 U/L (15-37) 07/27/23 09:31 ALT 23 U/L (16-61) 07/27/23 09:31 Alkaline Phosphatase 121 U/L (45-117) H 07/27/23 09:31 Home Medications: ALPRAZolam [Alprazolam] 1 mg PO PRN 07/28/23 Amiodarone HCl [Cordarone*] 200 mg PO BID 07/28/23 Apixaban [Eliquis] 5 mg PO BID 07/28/23 Aspirin [Aspirin EC] 81 mg PO DAILY 07/28/23 Baclofen 20 mg PO TID 07/28/23 DAPTOmycin [Daptomycin] 1,600 mg IV DAILY 07/28/23 Diltiazem HCl [Diltiazem ER] 180 mg PO DAILY 07/28/23 Gabapentin 300 mg PO TID 07/28/23 Hydrocodone Bit/Acetaminophen [Grandin 10-325 Tablet] 10 - 325 mg PO TID 07/28/23 Insulin Glargine,Hum.rec.anlog [Lantus] 45 units SQ BID 07/28/23 Losartan Potassium 100 mg PO DAILY 07/28/23 Metformin HCl 850 mg PO BID 07/28/23 Simvastatin 20 mg PO DAILY 07/28/23 Physician Discharge Instructions: Continue ad vivien activity. Take home meds as prescribed. Follow up with PCP and Gen surgeon within 2 weeks. Established Home Health Agency: [facility] ([facility]) P:[phone] F:[phone] Established Infusion Company/home IV antibiotics: [facility], [place] [address] P [phone] F Diet: AHA Activity: Ad vivien Followup: LOKESH CAMPA [Primary Care Provider] -
== END 2023-07-30 13:55 | disposition home health service (06) | DRG 623 ==
LOC: ER 08:24 → ERHOLD 11:47 → 4TH 13:36
PROVIDERS: ADMIT Hospitalist; ATTEND Hospitalist
PROC: 0JBR0ZZ Excision of Left Foot Subcutaneous Tissue and Fascia, Open Approach (ICD-10-PCS; principal; 2023-07-29 16:15)
DX: E11.69 Type 2 diabetes mellitus with other specified complication (principal); L03.116 Cellulitis of left lower limb; M86.8X8 Other osteomyelitis, other site; Z68.44 Body mass index [BMI] 60.0-69.9, adult; E66.01 Morbid (severe) obesity due to excess calories; E11.65 Type 2 diabetes mellitus with hyperglycemia; E11.42 Type 2 diabetes mellitus with diabetic polyneuropathy; E11.621 Type 2 diabetes mellitus with foot ulcer; L97.529 Non-pressure chronic ulcer of other part of left foot with unspecified severity; I10 Essential (primary) hypertension; I48.91 Unspecified atrial fibrillation; E78.5 Hyperlipidemia, unspecified; J44.9 Chronic obstructive pulmonary disease, unspecified; F17.210 Nicotine dependence, cigarettes, uncomplicated; Z79.2 Long term (current) use of antibiotics; Z79.4 Long term (current) use of insulin; Z79.01 Long term (current) use of anticoagulants; Z79.899 Other long term (current) drug therapy; Z89.412 Acquired absence of left great toe; Z89.422 Acquired absence of other left toe(s); Z91.199 Patient's noncompliance with other medical treatment and regimen due to unspecified reason
CPT/HCPCS: 36415; 71045; 80048; 80076; 81001; 82550; 82947; 83605; 83735; 83880; 84484; 85025; 85610; 86140; 87040; 87070; 87075; 87077; 87186; 87205; 88304; 93005; 93971; 96365; 99284; J0878; J1815; J2001; J2250; J2405; J2543; J2704; J7030; J7040; P9047

== ENCOUNTER 2023-08-22 12:02 | Inpatient (IN) | payer OTHER ==
[2023-08-22] MEDS ORDERED: MORPHINE 4 MG/ML SYR ONE (13:08)
[2023-08-22] MEDS ORDERED: ONDANSETRON 4 MG/2 ML VIAL ONE (13:08)
[2023-08-22 13:37] LABS: Absolute Basophils 0.2 K/uL (0-0.5); Absolute Eosinophils 0.1 K/uL (0-0.5); Absolute Lymphocytes (CBC) 2.6 K/uL (0.7-4.9); Absolute Monocytes 0.9 K/uL (0.1-1.3); Basophils % 1.2 % (0-1.3); Eosinophils % 1.1 % (0-4.4); Hematocrit 41.7 % (39.6-49.0); Hemoglobin 13.4 g/dL (13.6-17.9); MCH 27.9 pg (27.0-35.0); MCHC 32.2 g/dL (32.0-36.0); MCV 86.6 fL (80-100); MPV 7.2 fL (7.6-11.3); Monocytes % 7.3 % (3.3-12.3); Neutrophils % 70.4 % (41.7-73.7); Platelets 527 thou/uL (152-406); RBC Red Blood Cell Count 4.82 M/uL (4.33-5.43); Red Cell Distribution Width 16.3 % (12.1-15.2)
[2023-08-22 13:46] LABS: PT Prothrombin Time 13.6 SECONDS (9.5-12.5); PTT, Activated Partial Thromb 34.4 SECONDS (24.3-36.9); Protime INR 1.24
[2023-08-22 14:02] LABS: Albumin 2.9 g/dL (3.4-5.0); Albumin/Globulin Ratio 0.5 (1.1-1.8); Anion Gap 7.5 mEq/L (5.0-15.0); Bilirubin Total 0.4 mg/dL (0.2-1.0); Globulin 6.4 g/dL (2.3-3.5); Potassium 4.5 mEq/L (3.5-5.1); Protein, Total 9.3 g/dL (6.4-8.2)
--- NOTE | 2023-08-22 14:51 | RAD REPORT ---
EXAM DESCRIPTION: US - Extremity Venous Uni Ltd - 08/22/2023 2:37 pm CLINICAL HISTORY: Pain;Swelling Leg swelling and edema. COMPARISON: Extremity Venous Uni Ltd dated 07/27/2023 FINDINGS: Left lower extremity venous system was interrogated with Doppler technique. Normal flow, c ompressibility and augmentation was noted. There is no DVT present. IMPRESSION: No evidence of left lower extremity deep venous thrombosis.
--- NOTE | 2023-08-22 14:51 | RAD REPORT ---
EXAM DESCRIPTION: US - Lower Extremity Artery Uni Ltd - 08/22/2023 2:37 pm CLINICAL HISTORY: Pain;Swelling COMPARISON: Extremity Venous Uni Ltd dated 07/27/2023 FINDINGS: Left lower extremity arterial system was interrogated utilizing Doppler technique. Triphas ic waveforms are noted throughout the left lower extremity arterial system. No significant stenosis o r occlusion. IMPRESSION: No significant left lower extremity flow abnormality suspected.
--- NOTE | 2023-08-22 15:55 | ER ---
Nurse's Notes [facility] Name: Genaro Mccabe III Age: 47 yrs Sex: Male : 1975 Arrival Date: 08/22/2023 Time: 12:02 Bed 14 Private MD: Diagnosis: Cellulitis of left lower limb;Pain in left lower leg Presentation: 08/21 12:18 Chief complaint: Patient states: left foot and leg pain x 4 days gradually getting db worse. hx of foot surgery . Dr. Mendez did surgery. states today has increased pain. Coronavirus screen: Client denies travel out of the [place] in the last 14 days. At this time, the client does not indicate any symptoms associated with coronavirus-19. Ebola Screen: Patient negative for fever greater than or equal to 101.5 degrees Fahrenheit, and additional compatible Ebola Virus Disease symptoms Patient denies exposure to infectious person. Patient denies travel to an Ebola-affected area in the 21 days before illness onset. No symptoms or risks identified at this time. Initial Sepsis Screen: Does the patient meet any 2 criteria? No. Patient's initial sepsis screen is negative. Does the patient have a suspected source of infection? No. Patient's initial sepsis screen is negative. Risk Assessment: Do you want to hurt yourself or someone else? Patient reports no desire to harm self or others. Onset of symptoms was August 22, 2023. 12:18 Method Of Arrival: Wheelchair db 12:18 Acuity: RENUKA 3 db Triage Assessment: 12:20 General: Appears in no apparent distress. uncomfortable, Behavior is cooperative. Pain: db Complains of pain in left foot and left leg. Neuro: Level of Consciousness is awake, alert, obeys commands, Oriented to person, place, time, situation. Musculoskeletal: wound to left foot. Historical: - Allergies: 12:20 No Known Allergies; db - PMHx: 12:20 Atrial fibrillation; COPD; diabetes mellitus; Hypertensive disorder; db - Immunization history:: Adult Immunizations unknown. - Infectious Disease History:: Denies. - Social history:: Smoking status: Patient reports the use of cigarette tobacco products, smokes one pack cigarettes per day. - Family history:: not pertinent. - Hospitalizations: : No recent hospitalization is reported. Screenin:00 [facility] ED Fall Risk Assessment (Adult) History of falling in the last 3 months, ko1 including since admission No falls in past 3 months (0 pts) Confusion or Disorientation No (0 pts) Intoxicated or Sedated No (0 pts) Impaired Gait No (0 pts) Mobility Assist Device Used No (0 pt) Altered Elimination No (0 pt) Score/Fall Risk Level 0 - 2 = Low Risk Oriented to surroundings, Maintained a safe environment, Educated pt \T\ family on fall prevention, incl call for assistance when getting out of bed, Assessed \T\ reinforced patient's understanding of fall precautions, Provided non-skid footwear, Hourly rounding (assess needs \T\ fall precautionary measures) done, Used ambulatory aids as needed (educated on \T\ assisted with), Used gait belt as appropriate. Abuse screen: Denies threats or abuse. Denies injuries from another. Nutritional screening: No deficits noted. Tuberculosis screening: No symptoms or risk factors identified. Assessment: 12:30 General: Appears in no apparent distress. uncomfortable, obese, unkempt, Behavior is ko1 calm, cooperative, appropriate for age. Pain: Complains of pain in left leg and left foot. Neuro: No deficits noted. Cardiovascular: No deficits noted. Respiratory: No deficits noted. GI: No deficits noted. : No deficits noted. EENT: No deficits noted. Derm: Reports pain that is 10 out of 10 on a pain scale. Musculoskeletal: Reports pain in left leg and left foot. 12:30 Derm: Wound noted left foot Reports. Musculoskeletal: Swelling present in right leg and ko1 left leg. Vital Signs: 12:18 BP 200 / 116; Pulse 96; Resp 20; Temp 98.5(O); Pulse Ox 98% on R/A; Weight 208.65 kg; db Height 6 ft. 0 in. ; 14:00 BP 188 / 102; Pulse 90; Resp 18; Pulse Ox 97% on R/A; ko1 16:09 BP 174 / 101; Pulse 94; Resp 18; Pulse Ox 98% ; ko1 12:18 Body Mass Index 62.39 (208.65 kg, 182.88 cm) db ED Course: 12:05 Patient arrived in ED. mr 12:09 Dave Vang MD is Attending Physician. rn 12:14 Park Campos RN is Primary Nurse. ko1 12:20 Triage completed. db 12:20 Arm band placed on Patient placed in an exam room. db 13:30 Initial lab(s) drawn, by me, sent to lab. First set of blood cultures drawn by me, ko1 Second set of blood cultures drawn. Inserted saline lock: 20 gauge in left antecubital area, using aseptic technique. 13:32 Blood Culture Adult (2) Sent. ko1 13:32 CBC with Diff Sent. ko1 13:32 CMP Sent. ko1 13:32 Lactate w/ 2H reflex if indic. Sent. ko1 13:32 Protime (+inr) Sent. ko1 13:32 Ptt, Activated Sent. ko1 13:32 BNP Sent. ko1 14:00 Patient has correct armband on for positive identification. Bed in low position. Call ko1 light in reach. Provided Education on: labs. Client placed on continuous cardiac and pulse oximetry monitoring. NIBP monitoring applied. groundwater monitoring technician on. Door closed. Noise minimized. Lights dimmed. Warm blanket given. Pillow given. 14:00 No provider procedures requiring assistance completed. ko1 14:39 Extremity Venous Uni Ltd US In Process Unspecified. EDMS 14:39 Lower Extremity Artery Uni Ltd US In Process Unspecified. EDMS 15:20 EKG done, by ED staff, reviewed by Dave Vang MD. em1 15:54 Addison Stanley MD is Hospitalizing Provider. rn 15:56 Patient admitted, IV remains in place. ko1 Administered Medications: 13:31 Drug: morphine IVP or IV 4 mg IVP once over 4 mins Route: IVP; Infused Over: 4 mins; ko1 Site: left antecubital; 13:45 Follow up: Response: No adverse reaction; Pain is decreased ko1 13:31 Drug: Ondansetron IVP 4 mg IVP once; over 2 minutes Route: IVP; Site: left antecubital; ko1 13:45 Follow up: Response: No adverse reaction; Nausea is decreased ko1 16:45 Drug: HYDROmorphone IVP 1 mg IVP once Route: IVP; Site: left antecubital; ko1 17:00 Follow up: Response: No adverse reaction; Pain is decreased; RASS: Alert and Calm (0) ko1 Medication: 14:00 VIS not applicable for this client. ko1 Outcome: 15:54 Decision to Hospitalize by Provider. rn 15:56 Admitted to ER Hold. Please see [facility] for further documentation. ko1 15:56 Condition: stable 15:56 Instructed on the need for admit, 17:29 Patient left the ED. ko1 Signatures: Dispatcher [employer] ED HernandezPooja saxena, Reg Reg mr Dave Vang MD MD rn Martinez, Eric em1 Oliver, Kathy, RN RN ko1 Delmy Yang RN RN db Corrections: (The following items were deleted from the chart) 12:20 12:18 Acuity: RENUKA 2 db db 16:19 12:30 Derm: Reports pain that is 10 out of 10 on a pain scale. ko1 ko1
--- NOTE | 2023-08-22 15:55 | EDPHYS ---
Physician Documentation [facility] Name: Genaro Mccabe III Age: 47 yrs Sex: Male : 1975 Arrival Date: 08/22/2023 Time: 12:02 Bed 14 Private MD: ED Physician Dave Vang HPI: 08/21 15:50 This 47 yrs old Male presents to ER via Wheelchair with complaints of Leg Pain. rn 15:50 The patient presents with pain, swelling. The complaints affect the left calf and rn medial aspect of left calf. Onset: The symptoms/episode began/occurred 2 week(s) ago. Modifying factors: The symptoms are alleviated by nothing. the symptoms are aggravated by movement, weight bearing. Severity of symptoms: At their worst the symptoms were moderate, in the emergency department the symptoms are unchanged. The patient has experienced similar episodes in the past. Patient reports pain and increased swelling to left lower extremity over the last 2 weeks. Does not feel sick. Pain with any range of motion. Sees Alexsandra for wound care and told wound is looking good. Recently finished IV antibiotics with PICC line 2 weeks ago. Denies previous DVT or PE.. Historical: - Allergies: 12:20 No Known Allergies; db - PMHx: 12:20 Atrial fibrillation; COPD; diabetes mellitus; Hypertensive disorder; db - Immunization history:: Adult Immunizations unknown. - Infectious Disease History:: Denies. - Social history:: Smoking status: Patient reports the use of cigarette tobacco products, smokes one pack cigarettes per day. - Family history:: not pertinent. - Hospitalizations: : No recent hospitalization is reported. ROS: 15:50 Constitutional: Negative for fever, chills, and weight loss, Cardiovascular: Negative rn for chest pain, palpitations, and edema, Respiratory: Negative for shortness of breath, cough, wheezing, and pleuritic chest pain, Abdomen/GI: Negative for abdominal pain, nausea, vomiting, diarrhea, and constipation, MS/Extremity: Positive for left leg pain and swelling Neuro: Negative for headache, weakness, numbness, tingling, and seizure, Exam: 15:45 ECG was reviewed by the Attending Physician. 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 No pulse deficits. MS/ Extremity: Pulses equal, no cyanosis. Neurovascular intact. Left lower extremity 3 or 4 cm greater circumference compared to right lower extremity, prominent venous system noted. No focal tenderness. 3+ pitting edema. Chronic lymphedema changes present as well. Foot wound looking well, healthy healing, no foul smell or purulence Vital Signs: 12:18 BP 200 / 116; Pulse 96; Resp 20; Temp 98.5(O); Pulse Ox 98% on R/A; Weight 208.65 kg; db Height 6 ft. 0 in. ; 14:00 BP 188 / 102; Pulse 90; Resp 18; Pulse Ox 97% on R/A; ko1 16:09 BP 174 / 101; Pulse 94; Resp 18; Pulse Ox 98% ; ko1 12:18 Body Mass Index 62.39 (208.65 kg, 182.88 cm) db MDM: 12:09 Patient medically screened. rn 15:50 Differential diagnosis: Cellulitis, DVT, arterial insufficiency. Differential rn diagnosis: Lymphedema. Data reviewed: vital signs, nurses notes. Consideration of Admission/Observation Patient was admitted/placed on observation. Escalation of care including admission/observation considered. Care significantly affected by the following chronic conditions: Diabetes, Hypertension. Counseling: I had a detailed discussion with the patient and/or guardian regarding the historical points, exam findings, and any diagnostic results supporting the discharge/admit diagnosis, lab results, radiology results, the need for further work-up and treatment in the hospital. Response to treatment: the patient's symptoms have mildly improved after treatment, and as a result, I will admit patient. 08/21 13:05 Order name: Blood Culture Adult (2) rn 08/21 13:05 Order name: CBC with Diff; Complete Time: 14:35 rn 08/21 13:05 Order name: CMP; Complete Time: 14:35 rn 08/21 13:05 Order name: Lactate w/ 2H reflex if indic.; Complete Time: 14:35 rn 08/21 13:05 Order name: Protime (+inr); Complete Time: 14:35 rn 08/21 13:05 Order name: Ptt, Activated; Complete Time: 14:35 rn 08/21 13:06 Order name: BNP; Complete Time: 14:35 rn 08/21 13:05 Order name: Extremity Venous Uni Ltd US; Complete Time: 14:55 rn 08/21 13:05 Order name: Lower Extremity Artery Uni Ltd US; Complete Time: 14:55 rn 08/21 13:05 Order name: EKG; Complete Time: 13:06 rn 08/21 16:15 Order name: CONS Physician Consult EDMS 08/21 13:05 Order name: IV Start; Complete Time: 13:32 rn 08/21 13:05 Order name: Accucheck; Complete Time: 14:40 rn 08/21 13:05 Order name: Cardiac monitoring; Complete Time: 13:06 rn 08/21 13:05 Order name: EKG - Nurse/Tech; Complete Time: 15:19 rn 08/21 13:05 Order name: IV Saline Lock - Large Bore; Complete Time: 13:32 rn 08/21 13:05 Order name: Labs collected and sent; Complete Time: 13:32 rn 08/21 13:05 Order name: O2 Per Protocol; Complete Time: 13:06 rn 08/21 13:05 Order name: O2 Sat Monitoring; Complete Time: 13:06 rn 08/21 13:05 Order name: Vital Signs; Complete Time: 13:06 rn EC:45 Rate is 97 beats/min. Rhythm is regular. AL interval is normal. QRS interval is rn prolonged at 142 msec. QT interval is normal. No Q waves. T waves are Normal. No ST changes noted. Clinical impression: NSR w/ Non-specific ST/T Changes. Interpreted by me. Administered Medications: 13:31 Drug: morphine IVP or IV 4 mg IVP once over 4 mins Route: IVP; Infused Over: 4 mins; ko1 Site: left antecubital; 13:45 Follow up: Response: No adverse reaction; Pain is decreased ko1 13:31 Drug: Ondansetron IVP 4 mg IVP once; over 2 minutes Route: IVP; Site: left antecubital; ko1 13:45 Follow up: Response: No adverse reaction; Nausea is decreased ko1 16:45 Drug: HYDROmorphone IVP 1 mg IVP once Route: IVP; Site: left antecubital; ko1 17:00 Follow up: Response: No adverse reaction; Pain is decreased; RASS: Alert and Calm (0) ko1 Disposition Summary: 08/22/23 15:54 Hospitalization Ordered Notes: Hospitalization Status: Observation rn Provider: Stanley, Mohammad rn Location: Telemetry/MedSurg (observation) rn Condition: Stable rn Problem: new rn Symptoms: have improved rn Bed/Room Type: Standard rn Room Assignment: 401(08/22/23 16:35) 6 Diagnosis - Cellulitis of left lower limb rn - Pain in left lower leg rn Forms: - Medication Reconciliation Form rn - SBAR form rn - Leadership Thank You Letter rn Signatures: Dispatcher [employer] EDMS Dave Vang MD MD rn Oliver, Kathy, RN RN koDelmy Tom RN RN Meka Croft bc6 Corrections: (The following items were deleted from the chart) 13:06 13:06 Extremity Venous Uni Ltd+US.RAD.BRZ ordered. EDMS EDMS 13:06 13:06 Lower Extremity Artery Uni Ltd+US.RAD.BRZ ordered. EDMS EDMS 13:06 13:06 PROBNP+C.LAB.BRZ ordered. EDMS EDMS 16:35 15:54 rn 6
--- NOTE | 2023-08-22 16:07 | P.HP ---
Certification for Inpatient Patient admitted to: Inpatient <Veronique Pham - Last Filed: 08/22/23 17:03> Patient History Date of Service: 08/22/23 Reason for admission: Cellulitis left lower extremity History of Present Illness: 47-year-old male with a past medical history Atrial fibrillation; COPD; diabetes mellitus; Hypertensive disorder; presents to the emergency room with left lower extremity pain he reports associated swelling, swelling to the left calf that started 2 weeks ago. He reports associated pain. Pain worse with range of motion. He reports "seeings [facility] for wound care and told wound is looking good." He reports recently finishing IV antibiotics 2 weeks ago, he denies prior DVT or pulmonary embolism. Plan to admit for cellulitis of the left lower extremity, left lower extremity leg pain. Surgery to consult [facility]. Vital signs 8 BP 200 / 116; Pulse 96; Resp 20; Temp 98.5(O); Pulse Ox 98% on R/A; Weight 208.65 kg; Height 6 ft. 0 in.EKG rate is 97 beats/min. Rhythm is regular. AR interval is normal. QRS interval is prolonged at 142 msec. QT interval is normal. No Q waves. T waves are Normal. No ST changes noted. Clinical impression: NSR w/ Non-specific ST/T Changes. Laboratory evaluation leukocytosis 12.70, left shift 9.0, hyponatremia 131, blood glucose 171, elevated BNP 284, hypoalbumin 2.9. Ultrasound of the left lower extremity IMPRESSION: No evidence of left lower extremity deep venous thrombosis - Past Medical/Surgical History Diabetic: Yes -: A-fib -: Chronic anticoagulation -: Atrial flutter status post cardioversion -: Essential hypertension -: Hyperlipidemia -: Diabetes type 2 insulin-dependent -: Peripheral neuropathy -: Chronic left foot diabetic foot ulcer -: Tobacco use -: Obstructive sleep apnea -: Morbid obesity -: Left partial forefoot amputation - Social History Alcohol use: No CD- Drugs: No Caffeine use: Yes <Veronique Pham - Last Filed: 08/22/23 17:03> Date of Service: 08/22/23 <Addison Stanley - Last Filed: 08/23/23 20:42> Allergies No Known Allergies Allergy (Verified 07/28/23 09:49) Home Medications: ALPRAZolam [Alprazolam] 1 mg PO PRN 07/28/23 Apixaban [Eliquis] 5 mg PO BID 07/28/23 Aspirin [Aspirin EC] 81 mg PO DAILY 07/28/23 Baclofen 20 mg PO TID 07/28/23 Gabapentin 300 mg PO TID 07/28/23 Hydrocodone Bit/Acetaminophen [[place] 10-325 Tablet] 10 - 325 mg PO TID 07/28/23 Insulin Glargine,Hum.rec.anlog [Lantus] 45 units SQ BID 07/28/23 Losartan Potassium 100 mg PO DAILY 07/28/23 Metformin HCl 850 mg PO BID 07/28/23 Simvastatin 20 mg PO DAILY 07/28/23 Review of Systems PER HPI <Veronique Pham - Last Filed: 08/22/23 17:03> Physical Examination - Physical Exam General: Alert, In no apparent distress, Oriented x3 HEENT: Atraumatic, Normocephalic Neck: Supple, JVD not distended Respiratory: Normal air movement Cardiovascular: Normal pulses, Regular rate/rhythm Capillary refill: <2 Seconds Gastrointestinal: Normal bowel sounds, Soft and benign Musculoskeletal: Other (Left lower extremity edema, pain with range of motion) Integumentary: Other (Left lower extremity edema, left lower foot dressing intact) Neurological: Normal speech, Normal strength at 5/5 x4 extr - Studies Laboratory Data (last 24 hrs) 08/22/23 08/22/23 08/22/23 13:20 13:20 13:20 WBC 12.70 H Hgb 13.4 L Hct 41.7 Plt Count 527 H PT 13.6 H INR 1.24 APTT 34.4 Sodium 131 L Potassium 4.5 BUN 12 Creatinine 0.90 Glucose 171 H Total Bilirubin 0.4 AST 19 ALT 27 Alkaline Phosphatase 168 H <Veronique Pham - Last Filed: 08/22/23 17:03> Assessment and Plan - Plan Assessment plan Left lower extremity cellulitis Left lower extremity leg pain Recently finished IV antibiotics, presents to the emergency room with left lower extremity pain he reports associated swelling, swelling to the left calf that started 2 weeks ago. He reports associated pain. Pain worse with range of motion. He reports "seeings [facility] for wound care and told wound is looking good." He reports recently finishing IV antibiotics 2 weeks ago, he denies prior DVT or pulmonary embolism. Surgery to consult [facility]. Vital signs 8 BP 200 / 116; Pulse 96; Resp 20; Temp 98.5(O); Pulse Ox 98% on R/A; Ultrasound of the left lower extremity IMPRESSION: No evidence of left lower extremity deep venous thrombosis Laboratory evaluation leukocytosis 12.70, left shift 9.0, IV antibiotic, as needed analgesic wound care, cont Santyl as previous order Hypertensive urgency Elevated BNP elevated BNP 284 As needed antihypertensives telemetry Resume appropriate home meds Weight 208.65 kg; Height 6 ft. 0 in.EKG rate is 97 beats/min. Rhythm is regular. AR interval is normal. QRS interval is prolonged at 142 msec. QT interval is normal. No Q waves. T waves are Normal. No ST changes noted. Clinical impression: NSR w/ Non-specific ST/T Changes. Thrombocytosis elev platelets, 566, 527 on Eliquis Hyponatremia Gentle IV fluids hyponatremia 131 Hypoalbuminemia hypoalbumin 2.9. Morbid obesity Educated on diabetic diet atrial fibrillation COPD Resume appropriate home meds diabetes mellitus blood glucose 171, Accu-Cheks, sliding scale Full code DVT Diet Disposition Home independent prior , Discharge Plan: Home - Advance Directives Does patient have a Living Will: No Does patient have a Durable POA for Healthcare: No - Code Status/Comfort Care Code Status: Full Code Critical Care: No Time Spent Managing Pts Care (In Minutes): 55 <Veronique Pham - Last Filed: 08/22/23 17:03> Date of Service: 08/22/23 Patient was seen and examined. Events of the last 24 hours have been noted. Spoke with [facility] regarding patient's clinical picture after evaluating and examining the patient independently. Patient has erythema and edema of the left lower extremity (from the knee down to the foot-open wound to the 3rd metatarsal). Continue with antibiotics and diuresing at this time. I performed a substantial part of the MDM during this patient's care today. I personally made or approved the documented management plan and acknowledge its risk of complications. I agree with the findings and documentation provided in the [facility]'s notes. <Addison Stanley - Last Filed: 08/23/23 20:42>
[2023-08-22] MEDS ORDERED: HYDROMORPHONE HCL 1 MG/ML INJ ONE (16:30)
[2023-08-22] MEDS ORDERED: ACETAMINOPHEN 500 MG TAB PO PRN (17:43)
[2023-08-22] MEDS: INSULIN REGULAR (HUMAN) 100 UNIT/ML SQ SCH (17:43)
[2023-08-22] MEDS ORDERED: ALPRAZOLAM 0.25 MG TABLET PO PRN (17:43)
[2023-08-22] MEDS ORDERED: IPRATROPIUM BROM 0.5MG/2.5ML NEB PRN (17:43)
[2023-08-22] MEDS ORDERED: ALBUTEROL 2.5 MG/3 ML NEB SOL NEB PRN (17:43)
[2023-08-22] MEDS ORDERED: HYDROCODONE/APAP 10/325 TAB PO PRN (17:43)
[2023-08-22] MEDS ORDERED: METOPROLOL TARTRATE 5 MG/5 ML INJ IV PRN (17:43)
[2023-08-22] MEDS: COLLAGENASE 30 GM OINTMENT TOP SCH (18:14)
[2023-08-22] MEDS: NA CHLORIDE 0.9% 1,000 ML IV SCH (18:16)
[2023-08-22] MEDS: FUROSEMIDE 40 MG/4 ML VIAL IV ONE (19:39)
[2023-08-22] MEDS: ALBUMIN HUMAN 25% 50 ML IV ONE (19:39)
[2023-08-22] MEDS ORDERED: ENOXAPARIN 40 MG/0.4 ML SQ SCH (20:00)
[2023-08-22] MEDS: VANCOMYCIN 3 GM in NA CHLORIDE 0.9% 500 ML IVPB ONE (20:15)
[2023-08-22] MEDS ORDERED: INSULIN GLARGINE 100 UNIT/ML SQ SCH (21:00)
[2023-08-22 21:23] LABS: Specific Gravity 1.013 (1.005-1.030); Sqamous Epithelial <5 /HPF (None Seen); Urine Bacteria None Seen /HPF (<20); Urine Bilirubin NEGATIVE (Negative); Urine Blood Negative (Negative); Urine Clarity Turbid (Clear); Urine Color Light-Yellow (Yellow); Urine Culture Reflex Order NOT NEEDED; Urine Glucose 2+ (Negative); Urine Ketones NEGATIVE (Negative); Urine Microscopic Reflex YN ORDER UMIC; Urine Mucus Slight /HPF (None Seen); Urine Nitrite NEGATIVE (Negative); Urine Protein NEGATIVE (Negative); Urine RBC None Seen /HPF (None Seen); Urine Urobilinogen Normal (Normal); Urine WBC <5 /HPF (<5)
[2023-08-22] MEDS: CEFEPIME 2 GM in NA CHLORIDE 0.9% 100 ML IV SCH (22:17)
[2023-08-22] MEDS: INSULIN GLARGINE 100 UNIT/ML SQ SCH (22:18)
[2023-08-22] MEDS: APIXABAN 5 MG TABLET PO SCH (22:19)
[2023-08-22] MEDS: AMIODARONE HCL 200 MG TAB PO SCH (22:19)
[2023-08-22] MEDS: GABAPENTIN 300 MG CAP PO SCH (22:19)
[2023-08-22] MEDS: ATORVASTATIN 10 MG TAB PO SCH (22:19)
[2023-08-22 22:33] VITALS: BMI 62.2
[2023-08-22] MEDS: HYDROMORPHONE HCL 1 MG/ML INJ ONE (23:11)
[2023-08-22] MEDS: HYDROMORPHONE HCL 1 MG/ML INJ IV ONE (23:23)
[2023-08-23] MEDS ORDERED: HOME MED 1 EA UNK (Losartan Potassium [Losartan Potassium] 100 MG Tablet) PO SCH (09:00)
[2023-08-23] MEDS ORDERED: DILTIAZEM HCL 180 MG PO SCH (09:00)
[2023-08-23] MEDS ORDERED: HOME MED 1 EA UNK (Simvastatin [Simvastatin] 20 MG Tablet) PO SCH (09:00)
[2023-08-23] MEDS: LOSARTAN POTASSIUM 50 MG TABLET PO SCH (09:04)
[2023-08-23] MEDS: ASPIRIN EC 81 MG TAB PO SCH (09:04)
[2023-08-23] MEDS: DILTIAZEM HCL 180 MG SR CAP PO SCH (09:04)
[2023-08-23 10:03] LABS: Absolute Eosinophils 0.2 K/uL (0-0.5); Absolute Lymphocytes (CBC) 2.5 K/uL (0.7-4.9); Absolute Monocytes 1.1 K/uL (0.1-1.3); Absolute Neutrophil 8.3 K/uL (1.8-8.0); Anion Gap 8.1 mEq/L (5.0-15.0); Basophils % 0.3 % (0-1.3); Eosinophils % 1.8 % (0-4.4); Hematocrit 39.1 % (39.6-49.0); Hemoglobin 12.8 g/dL (13.6-17.9); Lymphocytes % 20.3 % (15.3-44.8); MCH 28.3 pg (27.0-35.0); MCHC 32.7 g/dL (32.0-36.0); MCV 86.6 fL (80-100); MPV 7.4 fL (7.6-11.3); Magnesium 2.2 mg/dL (1.6-2.4); Neutrophils % 68.6 % (41.7-73.7); Platelets 501 thou/uL (152-406); Potassium 4.1 mEq/L (3.5-5.1); RBC Red Blood Cell Count 4.51 M/uL (4.33-5.43); Red Cell Distribution Width 16.5 % (12.1-15.2)
[2023-08-23] MEDS: VANCOMYCIN 2 GM in NA CHLORIDE 0.9% 500 ML IVPB SCH (10:15)
--- NOTE | 2023-08-23 14:38 | EKG ---
Test Date: 2023-08-22 Test Time: 15:17:18 Claim Attorney: LINNETTE MEASUREMENT RESULTS: Intervals: Rate: 97 IN: 178 QRSD: 142 QT: 406 QTc: 515 [place]: P: 49 IN: 178 QRS: -68 T: 20 INTERPRETIVE STATEMENTS: Normal sinus rhythm Right bundle branch block Left anterior fascicular block Bifascicular block Cannot rule out Inferior infarct, age undetermined Abnormal ECG Compared to ECG 07/27/2023 12:51:34 Left anterior fascicular block now present Bifascicular block now present Myocardial infarct finding now present Electronically Signed On 08-23-23 14:35:43 CDT by Nahum Mantilla
--- NOTE | 2023-08-23 19:18 | P.PN ---
Subjective Date of Service: 08/23/23 Chief Complaint: Cellulitis left lower extremity Reports lower extremity edema, lower extremity pain, surgery consulted to follow-up Daily wound care as previously ordered - Physical Exam General: Alert, In no apparent distress, Oriented x3 HEENT: Atraumatic, Normocephalic Neck: Supple, JVD not distended Respiratory: Normal air movement Cardiovascular: Normal pulses, Regular rate/rhythm Capillary refill: <2 Seconds Gastrointestinal: Normal bowel sounds, Soft and benign Musculoskeletal: Other (Left lower extremity edema, pain with range of motion) Integumentary: Other (Left lower extremity edema, left lower foot dressing intact) Neurological: Normal speech, Normal strength at 5/5 x4 extr <Veronique Pham - Last Filed: 08/23/23 12:38> Date of Service: 08/23/23 <Addison Stanley - Last Filed: 08/23/23 20:43> Review of Systems Per HPI <Veronique Pham - Last Filed: 08/23/23 12:38> Physical Examination - Vital Signs Temperature: 97.1 F Blood Pressure: 135/80 Pulse: 94 Respirations: 18 Pulse Ox (%): 93 - Studies Laboratory Data (last 24 hrs) 08/22/23 08/22/23 08/22/23 13:20 13:20 13:20 WBC 12.70 H Hgb 13.4 L Hct 41.7 Plt Count 527 H PT 13.6 H INR 1.24 APTT 34.4 Sodium 131 L Potassium 4.5 BUN 12 Creatinine 0.90 Glucose 171 H Total Bilirubin 0.4 AST 19 ALT 27 Alkaline Phosphatase 168 H <Veronique Pham - Last Filed: 08/23/23 12:38> Assessment And Plan - Plan Assessment plan Left lower extremity cellulitis Left lower extremity leg pain Recently finished IV antibiotics, presents to the emergency room with left lower extremity pain he reports associated swelling, swelling to the left calf that started 2 weeks ago. He reports associated pain. Pain worse with range of motion. He reports "seeings [facility] for wound care and told wound is looking good." He reports recently finishing IV antibiotics 2 weeks ago, he denies prior DVT or pulmonary embolism. Surgery to consult [facility]. Vital signs 8 BP 200 / 116; Pulse 96; Resp 20; Temp 98.5(O); Pulse Ox 98% on R/A; Ultrasound of the left lower extremity IMPRESSION: No evidence of left lower extremity deep venous thrombosis Laboratory evaluation leukocytosis 12.70, left shift 9.0, IV antibiotic, as needed analgesic wound care, cont Santyl as previous order Hypertensive urgency Elevated BNP elevated BNP 284 As needed antihypertensives telemetry Resume appropriate home meds Weight 208.65 kg; Height 6 ft. 0 in.EKG rate is 97 beats/min. Rhythm is regular. MA interval is normal. QRS interval is prolonged at 142 msec. QT interval is normal. No Q waves. T waves are Normal. No ST changes noted. Clinical impression: NSR w/ Non-specific ST/T Changes. Thrombocytosis elev platelets, 566, 527 on Eliquis Hyponatremia Gentle IV fluids hyponatremia 131 Hypoalbuminemia hypoalbumin 2.9. Morbid obesity Educated on diabetic diet atrial fibrillation COPD Resume appropriate home meds diabetes mellitus blood glucose 171, Accu-Cheks, sliding scale Full code DVT Diet Disposition Home independent prior , Discharge Plan: Home - Code Status/Comfort Care Code Status: Full Code Critical Care: No Time Spent Managing PTS Care (In Minutes): 35 <Veronique Pham - Last Filed: 08/23/23 12:38>
[2023-08-24] MEDS: HYDRALAZINE HCL 20 MG/ML VIAL IV ONE (00:26)
[2023-08-24] MEDS: HYDROCODONE/APAP 10/325 TAB PO PRN (05:38)
--- NOTE | 2023-08-24 08:00 | RAD REPORT ---
EXAM DESCRIPTION: RAD - Foot Left 3 View - 08/24/2023 5:31 am CLINICAL HISTORY: osteomyelitis COMPARISON: Foot Left 3 View dated 07/27/2023; Lower Extremity Artery Uni Ltd dated 08/22/2023 FINDINGS/IMPRESSION: Increasing generalized cortical destruction at the midfoot and tip of the secon d metatarsal concerning for significant progression of osteomyelitis. 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 Fracture at the third p roximal phalanx with similar alignment. There has been partial amputation of the first and second toe s. Again noted is chronic midfoot dislocation.
--- NOTE | 2023-08-24 08:00 | RAD REPORT ---
EXAM DESCRIPTION: RAD - Ankle Left 3 View - 08/24/2023 5:31 am CLINICAL HISTORY: osteomyelitis COMPARISON: No comparisons FINDINGS/IMPRESSION: No acute fracture. No malalignment. Reference foot radiograph for additional fi ndings. No radiographic evidence of osteomyelitis at the ankle.
[2023-08-24 08:14] LABS: Absolute Eosinophils 0.3 K/uL (0-0.5); Absolute Lymphocytes (CBC) 2.5 K/uL (0.7-4.9); Basophils % 0.2 % (0-1.3); Eosinophils % 2.6 % (0-4.4); Hematocrit 37.4 % (39.6-49.0); Hemoglobin 12.6 g/dL (13.6-17.9); Lymphocytes % 23.1 % (15.3-44.8); MCH 28.8 pg (27.0-35.0); MCHC 33.7 g/dL (32.0-36.0); MCV 85.5 fL (80-100); MPV 7.2 fL (7.6-11.3); Monocytes % 9.4 % (3.3-12.3); Neutrophils % 64.7 % (41.7-73.7); Nucleated Red Blood Cells % 0.1 % (0-0); Platelets 462 thou/uL (152-406); RBC Red Blood Cell Count 4.37 M/uL (4.33-5.43); Red Cell Distribution Width 15.8 % (12.1-15.2)
--- NOTE | 2023-08-24 09:27 | P.PN ---
Subjective Date of Service: 08/24/23 Chief Complaint: Cellulitis left lower extremity Reports lower extremity edema, lower extremity pain, surgery consulted to follow-up Daily wound care as previously ordered Ankle, foot x-ray - Physical Exam General: Alert, In no apparent distress, Oriented x3 HEENT: Atraumatic, Normocephalic Neck: Supple, JVD not distended Respiratory: Normal air movement Cardiovascular: Normal pulses, Regular rate/rhythm Capillary refill: <2 Seconds Gastrointestinal: Normal bowel sounds, Soft and benign Musculoskeletal: Other (Left lower extremity edema, pain with range of motion) Integumentary: Other (Left lower extremity edema, left lower foot dressing intact) Neurological: Normal speech, Normal strength at 5/5 x4 extr Review of Systems Per HPI Physical Examination - Vital Signs Temperature: 96.9 F Blood Pressure: 143/86 Pulse: 89 Respirations: 18 Pulse Ox (%): 98 Assessment And Plan - Plan Assessment plan Left lower extremity cellulitis Left lower extremity leg pain Osteomyelitis left foot IV antibiotics, IV vancomycin, cefepime surgery consult -presents to the emergency room with left lower extremity pain he reports associated swelling, swelling to the left calf that started 2 weeks ago. He reports --associated pain. Pain worse with range of motion. He reports "seeings [facility] for wound care and told wound is looking good." -He reports recently finishing IV antibiotics 2 weeks ago, he denies prior DVT or pulmonary embolism. -Surgery to consult [facility]. Vital signs 8 BP 200 / 116; Pulse 96; Resp 20; Temp 98.5(O); Pulse Ox 98% on R/A; Ultrasound of the left lower extremity IMPRESSION: No evidence of left lower extremity deep venous thrombosis -Laboratory evaluation leukocytosis 12.70, left shift 9.0, IV antibiotic, as needed analgesic wound care, cont Santyl as previous order 08/23 Ankle foot x-ray FINDINGS/IMPRESSION: No acute fracture. No malalignment. Reference foot radiograph for additional findings. No radiographic evidence of osteomyelitis at the ankle. 08/23 Foot x-ray FINDINGS/IMPRESSION: Increasing generalized cortical destruction at the midfoot and tip of the second metatarsal concerning for significant progression of osteomyelitis. 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 Fracture at the third proximal phalanx with similar alignment. There has been partial amputation of the first and second toes. Again noted is chronic midfoot dislocation. Hypertensive urgency Elevated BNP elevated BNP 284 As needed antihypertensives telemetry Resume appropriate home meds Weight 208.65 kg; Height 6 ft. 0 in.EKG rate is 97 beats/min. Rhythm is regular. [place] interval is normal. QRS interval is prolonged at 142 msec. QT interval is normal. No Q waves. T waves are Normal. No ST changes noted. Clinical impression: NSR w/ Non-specific ST/T Changes. Thrombocytosis elev platelets, 566, 527 on Eliquis Hyponatremia Gentle IV fluids hyponatremia 131 Hypoalbuminemia hypoalbumin 2.9. Morbid obesity Educated on diabetic diet atrial fibrillation COPD Resume appropriate home meds diabetes mellitus blood glucose 171, Accu-Cheks, sliding scale Full code DVT Diet Disposition Home independent prior , Discharge Plan: Home - Code Status/Comfort Care Code Status: Full Code Critical Care: No Time Spent Managing PTS Care (In Minutes): 35
[2023-08-24] MEDS: VANCOMYCIN 1.75 GM in NA CHLORIDE 0.9% 500 ML IVPB SCH (10:08)
--- NOTE | 2023-08-24 11:57 | P.DS ---
Admission Date: 08/22/23 Discharge Date: 08/25/23 Disposition: [place] HOME/HOME HEALTH CARE Reason for Admission: Cellulitis left lower extremity Brief History of Present Illness: 47-year-old male with a past medical history Atrial fibrillation; COPD; diabetes mellitus; Hypertensive disorder; presents to the emergency room with left lower extremity pain he reports associated swelling, swelling to the left calf that started 2 weeks ago. He reports associated pain. Pain worse with range of motion. He reports "seeings [facility] for wound care and told wound is looking good." He reports recently finishing IV antibiotics 2 weeks ago, he denies prior DVT or pulmonary embolism. Plan to admit for cellulitis of the left lower extremity, left lower extremity leg pain. Surgery to consult [facility]. Vital signs 8 BP 200 / 116; Pulse 96; Resp 20; Temp 98.5(O); Pulse Ox 98% on R/A; Weight 208.65 kg; Height 6 ft. 0 in.EKG rate is 97 beats/min. Rhythm is regular. ND interval is normal. QRS interval is prolonged at 142 msec. QT interval is normal. No Q waves. T waves are Normal. No ST changes noted. Clinical impression: NSR w/ Non-specific ST/T Changes. Laboratory evaluation leukocytosis 12.70, left shift 9.0, hyponatremia 131, blood glucose 171, elevated BNP 284, hypoalbumin 2.9. Ultrasound of the left lower extremity IMPRESSION: No evidence of left lower extremity deep venous thrombosis - Physical Exam General: Alert, In no apparent distress, Oriented x3 HEENT: Atraumatic, Normocephalic Neck: Supple, JVD not distended Respiratory: Normal air movement Cardiovascular: Normal pulses, Regular rate/rhythm Capillary refill: <2 Seconds Gastrointestinal: Normal bowel sounds, Soft and benign Musculoskeletal: Other (Left lower extremity edema, pain with range of motion) Integumentary: Other (Left lower extremity edema, left lower foot dressing intact) Neurological: Normal speech, Normal strength at 5/5 x4 extr Hospital Course: 47-year-old male with a past medical history Atrial fibrillation; COPD; diabetes mellitus; Hypertensive disorder; presents to the emergency room with left lower extremity pain he reports associated swelling, swelling to the left calf that started 2 weeks ago. He reports associated pain. Pain worse with range of motion. He reports "seeings [facility] for wound care and told wound is looking good." He reports recently finishing IV antibiotics 2 weeks ago, he denies prior DVT or pulmonary embolism. He was admitted for cellulitis of the lower left lower. He was treated with IV antibiotics. Was evaluated by Surgery. Patient is tolerating diet can discharge home follow-up with PCP outpatient PROBLEM: chronic Left lower extremity diabetic foot ulcer-discharged home on p.o. antibiotics doxycycline as directed (osteomyelitis ruled out by surgery) per surgery patient can discharge home follow-up with surgery outpatient Left lower extremity edema negative for DVT Uncontrolled hypertension, resume blood pressure medication, instructed on getting comorbidity under control Diabetes, educated to keep blood glucose under control, diabetic Morbid obesity-recommend weight loss to reduce weightbearing load on left lower EXTR Diabetic peripheral neuropathy Continue daily wound care as previously ordered per surgery Follow-up weekly with Dr. Upton Partial weightbearing left lower extremity-use walker, wheelchair assistance device RX sent to [facility] Rad/Lab/Micro: Ultrasound negative for DVT Foot x-ray partial fracture, diabetic foot ulcer instructed on limited nwb vs pwb weightbearing, using wheelchair is much as possible X-ray discussed with patient with Dr. Upton Hemoglobin a1c prior to discharge orede discharged home on gabapentin, doxycycline Continue home medicines as previously prescribed GOAL: Clear understanding of disease process INSTRUCTIONS: Physician Discharge Instructions: -Follow-up with PCP in 1 to 2 weeks -Please call Dr. Stanley at [phone] if any questions regarding hospital stay -Please call nursing station at [phone] if any nursing or medication questions -Return to the emergency room if symptoms worsen Diet: ADA, low sodium Activity: Fall precautions. PWB Vital Signs/Physical Exam: Temp Pulse Resp BP Pulse Ox 96.9 F 89 18 143/86 H 98 08/24/23 09:26 08/24/23 09:26 08/24/23 09:26 08/24/23 09:26 08/24/23 09:26 Laboratory Data at Discharge: WBC 10.90 thou/uL (4.3-10.9) 08/24/23 07:38 Hgb 12.6 g/dL (13.6-17.9) L 08/24/23 07:38 Hct 37.4 % (39.6-49.0) L 08/24/23 07:38 Plt Count 462 thou/uL (152-406) H 08/24/23 07:38 PT 13.6 SECONDS (9.5-12.5) H 08/22/23 13:20 INR 1.24 08/22/23 13:20 APTT 34.4 SECONDS (24.3-36.9) 08/22/23 13:20 Sodium 129 mEq/L (136-145) L 08/24/23 07:38 Potassium 4.0 mEq/L (3.5-5.1) 08/24/23 07:38 BUN 12 mg/dL (7-18) 08/24/23 07:38 Creatinine 0.79 mg/dL (0.70-1.30) 08/24/23 07:38 Glucose 179 mg/dL (74-106) H 08/24/23 07:38 Magnesium 2.0 mg/dL (1.6-2.4) 08/24/23 07:38 Total Bilirubin 0.4 mg/dL (0.2-1.0) 08/22/23 13:20 AST 19 U/L (15-37) 08/22/23 13:20 ALT 27 U/L (16-61) 08/22/23 13:20 Alkaline Phosphatase 168 U/L (45-117) H 08/22/23 13:20 Home Medications: Hydrocodone Bit/Acetaminophen [[place] 10-325 Tablet] 10 - 325 mg PO TID 07/28/23 RX: ALPRAZolam [Alprazolam] 1 mg PO PRN 07/28/23 RX: Apixaban [Eliquis] 5 mg PO BID 07/28/23 RX: Aspirin [Aspirin EC] 81 mg PO DAILY 07/28/23 RX: Baclofen 20 mg PO TID 07/28/23 RX: Insulin Glargine,Hum.rec.anlog [Lantus] 45 units SQ BID 07/28/23 RX: Losartan Potassium 100 mg PO DAILY 07/28/23 RX: Metformin HCl 850 mg PO BID 07/28/23 RX: Simvastatin 20 mg PO DAILY 07/28/23 RX: Amiodarone HCl [Cordarone*] 200 mg PO BID tab 08/24/23 RX: Collagenase [Santyl Ointment*] 1 appl TOP DAILY tube 08/24/23 RX: Doxycycline Hyclate [Vibramycin] 100 mg PO BID 10 Days #20 mg 08/24/23 RX: Gabapentin 300 mg PO TID 30 Days #90 tab 08/24/23 RX: Hydrocodone 10/APAP 325 [[place] 10/325*] 1 tab PO TID PRN tab 08/24/23 New Medications: RX: Gabapentin 300 mg PO TID 30 Days #90 tab RX: Doxycycline Hyclate [Vibramycin] 100 mg PO BID 10 Days #20 mg Physician Discharge Instructions: [facility] P:[phone] F:[phone] Diet: ADA Activity: PWB LLE Followup: Bright Upton MD [ACTIVE - CAN ADMIT] - 1 Week (call for an apointment) LOKESH CAMPA [Primary Care Provider] - Physician Review: Patient Assessed, Agree with Above Assessment and Plan Time spent managing pt's care (in minutes): 55
[2023-08-24] MEDS: NA CHLORIDE 0.9% 500 ML IV ONE (12:08)
[2023-08-24 14:36] VITALS: O2SAT 93
[2023-08-24 16:14] LABS: Anion Gap 8.5 mEq/L (5.0-15.0); Potassium 4.5 mEq/L (3.5-5.1)
[2023-08-24 16:39] VITALS: BP 161/88; TEMP 97.1
== END 2023-08-24 17:04 | disposition home health service (06) | DRG 603 ==
LOC: ER 12:02 → ERHOLD 16:12 → 4TH 16:51
PROVIDERS: ADMIT Hospitalist; ATTEND Hospitalist
DX: L03.116 Cellulitis of left lower limb (principal); E87.1 Hypo-osmolality and hyponatremia; Z68.44 Body mass index [BMI] 60.0-69.9, adult; E66.01 Morbid (severe) obesity due to excess calories; I48.91 Unspecified atrial fibrillation; I16.0 Hypertensive urgency; E78.5 Hyperlipidemia, unspecified; I10 Essential (primary) hypertension; E11.42 Type 2 diabetes mellitus with diabetic polyneuropathy; E11.621 Type 2 diabetes mellitus with foot ulcer; L97.529 Non-pressure chronic ulcer of other part of left foot with unspecified severity; D75.839 Thrombocytosis, unspecified; E88.09 Other disorders of plasma-protein metabolism, not elsewhere classified; J44.9 Chronic obstructive pulmonary disease, unspecified; F17.210 Nicotine dependence, cigarettes, uncomplicated; Z79.4 Long term (current) use of insulin; Z79.82 Long term (current) use of aspirin; Z79.84 Long term (current) use of oral hypoglycemic drugs; Z79.01 Long term (current) use of anticoagulants; Z89.432 Acquired absence of left foot; Z79.899 Other long term (current) drug therapy
CPT/HCPCS: 36415; 80048; 80053; 80202; 81001; 82947; 83036; 83605; 83735; 83880; 85025; 85610; 85730; 87040; 87070; 87077; 87186; 87205; 93005; 93926; 93971; 96374; 96375; 99285; J0360; J0692; J1170; J1815; J1940; J2405; J3590; J7030; J7040; P9047

== ENCOUNTER 2023-12-11 09:42 | Day surgery (SDC) | payer OTHER ==
[2023-12-11 09:51] LABS: Absolute Basophils 0.1 K/uL (0-0.5); Absolute Eosinophils 0.1 K/uL (0-0.5); Absolute Lymphocytes (CBC) 2.6 K/uL (0.7-4.9); Absolute Monocytes 0.8 K/uL (0.1-1.3); Absolute Neutrophil 6.9 K/uL (1.8-8.0); Basophils % 1.4 % (0-1.3); Eosinophils % 1.4 % (0-4.4); Hematocrit 47.2 % (39.6-49.0); Hemoglobin 15.7 g/dL (13.6-17.9); Lymphocytes % 24.6 % (15.3-44.8); MCH 29.8 pg (27.0-35.0); MCHC 33.3 g/dL (32.0-36.0); MCV 89.7 fL (80-100); MPV 7.5 fL (7.6-11.3); Monocytes % 7.1 % (3.3-12.3); Neutrophils % 65.5 % (41.7-73.7); Nucleated Red Blood Cells % 0.1 % (0-0); Platelets 330 thou/uL (152-406); RBC Red Blood Cell Count 5.26 M/uL (4.33-5.43); Red Cell Distribution Width 15.2 % (12.1-15.2)
[2023-12-11 10:05] LABS: Anion Gap 8.3 mEq/L (5.0-15.0); Potassium 4.3 mEq/L (3.5-5.1)
[2023-12-11] MEDS: NA CHLORIDE 0.9% 1,000 ML ONE (10:18)
[2023-12-11] MEDS ORDERED: MIDAZOLAM HCL 2 MG/2 ML INJ ONE (12:12)
[2023-12-11] MEDS: CEFAZOLIN SODIUM 2 GM/VIAL ONE (12:17)
[2023-12-11] MEDS ORDERED: propofoL 200 MG/20 ML VIAL IV ONE ×2 (12:19→12:47)
[2023-12-11] MEDS ORDERED: LIDOCAINE 1% MPF 5 ML VIAL ONE (12:19)
[2023-12-11] MEDS ORDERED: KETOROLAC 30 MG/ML INJ ONE (12:49)
[2023-12-11] MEDS ORDERED: ONDANSETRON 4 MG/2 ML VIAL ONE (12:49)
[2023-12-11] MEDS: LIDOCAINE HCL/EPINEPHRINE 20 ML MDV ONE (12:52)
--- NOTE | 2023-12-11 13:05 | P.OP ---
Preoperative diagnosis: LEFT ankle chronic wound Postoperative diagnosis: LEFT ankle chronic wound Primary procedure: Debridement of LEFT ankle chronic wound Anesthesia: GETA + Local Estimated blood loss: <2cc Specimen: Debridement Tissue Findings: ~ 7cm round wound to fascia over tendons,lateral ankle Complications: None Transferred to: Recovery Room Condition: Good
[2023-12-11 14:30] VITALS: BP 137/81; TEMP 97; O2SAT 97
--- NOTE | 2023-12-11 16:54 | EKG ---
Test Date: 2023-12-11 Test Time: 09:27:06 Government Auditor: NEAL MEASUREMENT RESULTS: Intervals: Rate: 74 [place]: 198 QRSD: 148 QT: 430 QTc: 477 [place]: P: 54 [place]: 198 QRS: -47 T: 18 INTERPRETIVE STATEMENTS: Normal sinus rhythm Right bundle branch block Left anterior fascicular block Bifascicular block Abnormal ECG Compared to ECG 08/22/2023 15:17:18 Myocardial infarct finding no longer present Bifascicular block still present Electronically Signed On 12-11-23 16:53:26 CDT by Emanuel Soto
--- NOTE | 2023-12-11 20:08 | OP ---
Date of Procedure: 12/11/2023 Surgeon: Bright Upton MD, Preoperative Diagnosis: Left ankle chronic wound. Postoperative Diagnosis: Left ankle chronic wound. Procedure Performed: Debridement of left ankle chronic wound. Anesthesia: General endotracheal plus local with 1% lidocaine with epinephrine. Estimated Blood Loss: Less than 2 cc. Specimen: Debrided tissue. Findings: Approximately 7 cm round wound extending to the fascia overlying the tendons on the latera l head with necrotic tissue. Complications: None. Disposition: Patient transferred to recovery room in good condition. Procedure In Detail: After informed consent was obtained, patient was brought into the operating mariely m, prepped and draped in the usual sterile fashion. After adequate anesthesia was achieved, anesthet ized an area of obvious necrosis of the left ankle on the lateral aspect of the ankle near the latera l malleolus. I then circumferentially dissected down using primarily sharp dissection as well as min imal electrocautery circumferentially around an obviously necrotic tissue using a combination of cure tte as well to remove all nonviable tissue down to the fascia overlying the tendon. This area was co piously irrigated after this, packed with the Vashe soaked gauze and sterile dressing placed over top . The patient tolerated the procedure well without incident or complication, transferred to PACU in good condition. All counts w ere correct at the end of the case. LAVERNE/RIVER Voice ID: [id number] Report ID: [id number]
== END 2023-12-11 14:22 | disposition home or self-care (01) ==
LOC: OR 09:42
PROVIDERS: ATTEND Surgery
PROC: 0JBR0ZZ Excision of Left Foot Subcutaneous Tissue and Fascia, Open Approach (ICD-10-PCS; principal; 2023-12-11 12:00)
DX: S91.002A Unspecified open wound, left ankle, initial encounter (principal); I96 Gangrene, not elsewhere classified; E11.622 Type 2 diabetes mellitus with other skin ulcer; E11.9 Type 2 diabetes mellitus without complications; I10 Essential (primary) hypertension; E66.01 Morbid (severe) obesity due to excess calories; F17.210 Nicotine dependence, cigarettes, uncomplicated; F41.9 Anxiety disorder, unspecified; E78.5 Hyperlipidemia, unspecified; Z68.44 Body mass index [BMI] 60.0-69.9, adult; Z89.412 Acquired absence of left great toe; Z89.422 Acquired absence of other left toe(s)
CPT/HCPCS: 93005; 85025; 80048; 36415; 88304; 83036; 11042; J2704 ×2; J2001; J2250; J2405; J7030